=== PATIENT | male | born 1945 | race Caucasian/White ===

== ENCOUNTER 2021-02-25 10:50 | Outpatient (REF) | payer MEDICARE, OTHER, SELFPAY ==
[2021-02-25 11:58] LABS: TSH reflex Free T4 4.21 uIU/mL (0.32-4.0)
[2021-02-25 12:35] LABS: Free T4 (Free Thyroxine) 1.17 ng/dL (0.71-1.85)
== END 2021-02-25 10:51 | disposition home or self-care (01) ==
LOC: HO.LNP 10:50
PROVIDERS: Visit Provider Internal Medicine
DX: E03.9 Hypothyroidism, unspecified (principal)
CPT/HCPCS: 84439; 84443

== ENCOUNTER 2021-05-25 10:34 | Outpatient (REF) | payer MEDICARE, OTHER, SELFPAY ==
[2021-05-25 11:13] LABS: Estimated Average Glucose 120 mg/dL; Hemoglobin A1c % 5.8 %
[2021-05-25 11:22] LABS: Creatinine Urine 116.25 mg/dL; Microalbumin Urine < 5.0 mg/L
[2021-05-25 11:40] LABS: Alanine Aminotransferase 51 U/L (0-40); Albumin Level 4.2 g/dL (3.5-5.0); Alkaline Phosphatase 140 U/L (39-117); Aspartate Amino Transferase 51 U/L (5-37); Bilirubin Direct 0.3 mg/dL (0.0-0.5); Bilirubin Total 0.7 mg/dL (0.0-1.0); Cholesterol 115 mg/dL; HDL Cholesterol 35 mg/dL; LDL Cholesterol Calculated 69 mg/dl; Total Protein 6.6 g/dL (6.5-8.0); Triglycerides 59 mg/dL
[2021-05-25 12:12] LABS: Reflex LDLD? No
== END 2021-05-25 10:35 | disposition home or self-care (01) ==
LOC: HO.LNP 10:34
PROVIDERS: Visit Provider Internal Medicine
DX: R73.03 Prediabetes (principal); E78.00 Pure hypercholesterolemia, unspecified
CPT/HCPCS: 80061; 80076; 82043; 83036

== ENCOUNTER 2021-07-08 08:03 | Outpatient (REF) | payer MEDICARE, OTHER, SELFPAY ==
--- NOTE | ~2021-07-08 | XR_ITS ---
EXAMINATION: XR KNEE STANDING BILATERAL XR KNEE, RIGHT CLINICAL INFORMATION: Knee pain COMPARISON: None TECHNIQUE: AP standing view of both knees Right knee, 2 views (lateral and sunrise views) FINDINGS: The AP standing view shows well-preserved medial and lateral tibiofemoral joint space at the left knee. At the right knee, there is chondrocalcinosis, tricompartmental osteophyte formation, and moderate loss of the lateral tibiofemoral joint space. Also, subchondral sclerosis and subchondral cystic change at the degenerated lateral compartment of the right knee. There is approximately 10 degrees of genu valgus deformity of the right knee. The two additional views (lateral and sunrise views) of the right knee again show the chondrocalcinosis as well as a few intra-articular osteochondral bodies. Small knee joint effusion is present. Atherosclerotic calcification of the femoral, popliteal and lower leg vessels. 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 There is at least moderate osteoarthritis of the lateral tibiofemoral and patellofemoral compartments of the right knee. The lateral joint space narrowing is associated with exaggerated genu valgus configuration of the right knee.
--- NOTE | ~2021-07-08 | XR_ITS ---
EXAMINATION: XR KNEE STANDING BILATERAL XR KNEE, RIGHT CLINICAL INFORMATION: Knee pain COMPARISON: None TECHNIQUE: AP standing view of both knees Right knee, 2 views (lateral and sunrise views) FINDINGS: The AP standing view shows well-preserved medial and lateral tibiofemoral joint space at the left knee. At the right knee, there is chondrocalcinosis, tricompartmental osteophyte formation, and moderate loss of the lateral tibiofemoral joint space. Also, subchondral sclerosis and subchondral cystic change at the degenerated lateral compartment of the right knee. There is approximately 10 degrees of genu valgus deformity of the right knee. The two additional views (lateral and sunrise views) of the right knee again show the chondrocalcinosis as well as a few intra-articular osteochondral bodies. Small knee joint effusion is present. Atherosclerotic calcification of the femoral, popliteal and lower leg vessels. 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 There is at least moderate osteoarthritis of the lateral tibiofemoral and patellofemoral compartments of the right knee. The lateral joint space narrowing is associated with exaggerated genu valgus configuration of the right knee.
== END 2021-07-08 08:04 | disposition home or self-care (01) ==
LOC: HO.HOSX 08:03
PROVIDERS: Visit Provider Orthopaedic Surgery
DX: M17.11 Unilateral primary osteoarthritis, right knee (principal)
CPT/HCPCS: 73560; 73565; 99202

== ENCOUNTER 2021-07-16 10:28 | Outpatient (REF) | payer MEDICARE, OTHER, SELFPAY ==
[2021-07-16 11:02] LABS: Alanine Aminotransferase 29 U/L (0-40); Albumin Level 4.2 g/dL (3.5-5.0); Alkaline Phosphatase 124 U/L (39-117); Aspartate Amino Transferase 25 U/L (5-37); Bilirubin Direct 0.3 mg/dL (0.0-0.5); Bilirubin Total 0.7 mg/dL (0.0-1.0); Total Protein 6.6 g/dL (6.5-8.0)
== END 2021-07-16 10:29 | disposition home or self-care (01) ==
LOC: HO.LNP 10:28
PROVIDERS: Visit Provider Internal Medicine
DX: R79.89 Other specified abnormal findings of blood chemistry (principal)
CPT/HCPCS: 80076

== ENCOUNTER 2022-01-21 10:10 | Outpatient (REF) | payer MEDICARE, OTHER, SELFPAY ==
[2022-01-21 10:16] LABS: MANUAL DIFF FLAG NO
[2022-01-21 10:30] LABS: Basophils Absolute Auto 0.1 X10*3/uL (0.0-0.2); Basophils Percent Auto 1.4 % (0-2); Eosinophils Absolute Auto 0.3 X10*3/uL (0.0-0.4); Eosinophils Percent Auto 5.5 % (0-4); Hematocrit 40.6 % (42.0-52.0); Imm Gran Abs Auto 0.02 X10*3/uL (0.00-0.03); Imm Gran Pct Auto 0.3 % (0.0-0.4); Lymphocytes Absolute Auto 1.6 X10*3/uL (1.2-4.9); Lymphocytes Percent Auto 26.9 % (20-40); Mean Corpuscular Volume 93.8 fL (80.0-98.0); Mean Platelet Volume 10.4 fL (9.4-12.4); Monocytes Absolute Auto 0.7 X10*3/uL (0.1-1.2); Monocytes Percent Auto 12.1 % (2-11); Neutrophils Absolute Auto 3.2 x10*3/uL (2.0-8.3); Neutrophils Percent Auto 53.8 % (45-73); Platelet Count 254 X10*3/uL (160-400); Red Blood Count 4.33 X10*6/uL (4.60-5.80); Red Cell Distribution Width 13.3 % (11.0-16.0); White Blood Count 5.9 X10*3/uL (4.8-10.8)
[2022-01-21 10:34] LABS: Appearance Urine CLEAR; Color Urine YELLOW; Glucose Urine UA NEG (NEG); Leukocyte Esterase Urine NEG (NEG); Nitrite Urine NEG (NEG); Urine Blood NEG (NEG); Urine Ketones NEG (NEG); Urine Protein NEG (NEG-TRACE)
[2022-01-21 10:47] LABS: Alanine Aminotransferase 29 U/L (0-40); Alkaline Phosphatase 113 U/L (39-117); Anion Gap 11 (12-20); Aspartate Amino Transferase 23 U/L (5-37); Bilirubin Total 0.6 mg/dL (0.0-1.0); Blood Urea Nitrogen 19 mg/dL (9-16); Calcium 9.7 mg/dL (8.4-10.2); Carbon Dioxide 27 mmol/L (22-29); Chloride 105 mmol/L (96-108); Cholesterol 123 mg/dL; Estimated Glomerular Filt Rate 48; Glucose Fasting 98 mg/dL (60-99); HDL Cholesterol 37 mg/dL; LDL Cholesterol Calculated 72 mg/dl; Potassium 4.3 mmol/L (3.3-5.1); Sodium 139 mmol/L (135-145); Total Protein 6.7 g/dL (6.5-8.0); Triglycerides 70 mg/dL
[2022-01-21 10:48] LABS: Estimated Average Glucose 111 mg/dL; Hemoglobin A1c % 5.5 %
[2022-01-21 10:54] LABS: Creatinine Urine 115.64 mg/dL; Microalbum/Creatinine Ratio Ur 4.3 ug/mg cr
[2022-01-21 11:07] LABS: PSA,Total (Free>4and<10) 1.11 ng/mL (0.00-4.00); TSH reflex Free T4 10.11 uIU/mL (0.32-4.0)
== END 2022-01-21 10:11 | disposition home or self-care (01) ==
LOC: HO.LNP 10:10
PROVIDERS: Visit Provider Internal Medicine
DX: I10 Essential (primary) hypertension (principal); R73.03 Prediabetes; E78.00 Pure hypercholesterolemia, unspecified; E03.9 Hypothyroidism, unspecified; Z12.5 Encounter for screening for malignant neoplasm of prostate
CPT/HCPCS: 80053; 80061; 81003; 82043; 83036; 84153; 84439; 84443; 85025

== ENCOUNTER 2022-01-28 11:09 | Outpatient (REF) | payer MEDICARE, OTHER, SELFPAY ==
[2022-01-28 12:17] LABS: Thyroid Stimulating Hormone 4.02 uIU/mL (0.32-4.0)
== END 2022-01-28 11:10 | disposition home or self-care (01) ==
LOC: HO.LNP 11:09
PROVIDERS: Visit Provider Internal Medicine
DX: E03.9 Hypothyroidism, unspecified (principal)
CPT/HCPCS: 84443

== ENCOUNTER 2022-07-26 10:43 | Outpatient (REF) | payer MEDICARE, OTHER, SELFPAY ==
[2022-07-26 10:47] LABS: MANUAL DIFF FLAG NO
[2022-07-26 10:52] LABS: Appearance Urine Clear; Basophils Absolute Auto 0.1 X10*3/uL (0.0-0.2); Basophils Percent Auto 1.4 % (0-2); Color Urine Yellow; Eosinophils Absolute Auto 0.3 X10*3/uL (0.0-0.4); Eosinophils Percent Auto 3.8 % (0-4); Glucose Urine UA Negative (Negative); Hematocrit 44.6 % (42.0-52.0); Hemoglobin 14.8 g/dl (14.0-18.0); Imm Gran Abs Auto 0.02 X10*3/uL (0.00-0.03); Imm Gran Pct Auto 0.3 % (0.0-0.4); Leukocyte Esterase Urine Negative (Negative); Lymphocytes Absolute Auto 1.6 X10*3/uL (1.2-4.9); Lymphocytes Percent Auto 21.1 % (20-40); Mean Corpuscular HGB Conc 33.2 g/dl (31.0-36.0); Mean Corpuscular Hemoglobin 30.1 pg (27.0-33.0); Mean Corpuscular Volume 90.7 fL (80.0-98.0); Monocytes Absolute Auto 0.8 X10*3/uL (0.1-1.2); Monocytes Percent Auto 10.4 % (2-11); Neutrophils Absolute Auto 4.6 x10*3/uL (2.0-8.3); Nitrite Urine Negative (Negative); PH 5.5 (5.0-9.0); Platelet Count 215 X10*3/uL (160-400); Red Blood Count 4.92 X10*6/uL (4.60-5.80); Red Cell Distribution Width 13.1 % (11.0-16.0); Specific Gravity - Urine 1.015 (1.005-1.025); Urine Blood Negative (Negative); Urine Ketones Negative (Negative); Urine Protein Negative (Neg-Trace); White Blood Count 7.3 X10*3/uL (4.8-10.8)
[2022-07-26 10:57] LABS: Bacteria Urine None Seen (None Seen); Hyaline Casts Urine 0-2 /LPF (0-2); RBC Urine 0-2 /HPF (0-2); Squamous Epithelial Cell Urine 0-2 /HPF (0-2); WBC Urine 0-5 /HPF (0-5)
[2022-07-26 11:02] LABS: Alanine Aminotransferase 34 U/L (0-40); Albumin Level 4.4 g/dL (3.5-5.0); Alkaline Phosphatase 122 U/L (39-117); Anion Gap 14 (12-20); Aspartate Amino Transferase 30 U/L (5-37); Bilirubin Total 0.6 mg/dL (0.0-1.0); Blood Urea Nitrogen 18 mg/dL (9-16); Calcium 9.9 mg/dL (8.4-10.2); Carbon Dioxide 27 mmol/L (22-29); Chloride 104 mmol/L (96-108); Cholesterol 146 mg/dL; Estimated Glomerular Filt Rate 57; Glucose Fasting 101 mg/dL (60-99); HDL Cholesterol 47 mg/dL; LDL Cholesterol Calculated 88 mg/dl; Potassium 4.7 mmol/L (3.3-5.1); Sodium 140 mmol/L (135-145); Total Protein 6.9 g/dL (6.5-8.0); Triglycerides 55 mg/dL
[2022-07-26 11:14] LABS: Estimated Average Glucose 114 mg/dL; Hemoglobin A1c % 5.6 %
[2022-07-26 11:21] LABS: PSA,Total (Free>4and<10) 0.94 ng/mL (0.00-4.00); TSH reflex Free T4 7.75 uIU/mL (0.32-4.0)
[2022-07-26 11:48] LABS: Creatinine Urine 93.29 mg/dL; Microalbum/Creatinine Ratio Ur 9.6 ug/mg cr
[2022-07-26 11:55] LABS: Free T4 (Free Thyroxine) 1.25 ng/dL (0.71-1.85)
== END 2022-07-26 10:44 | disposition home or self-care (01) ==
LOC: HO.LNP 10:43
PROVIDERS: Visit Provider Internal Medicine
DX: Z12.5 Encounter for screening for malignant neoplasm of prostate (principal); I10 Essential (primary) hypertension; E03.9 Hypothyroidism, unspecified; E78.00 Pure hypercholesterolemia, unspecified
CPT/HCPCS: 80053; 80061; 81001; 82043; 83036; 84153; 84439; 84443; 85025

== ENCOUNTER 2023-01-27 11:03 | Outpatient (REF) | payer MEDICARE, OTHER, SELFPAY ==
[2023-01-27 11:07] LABS: MANUAL DIFF FLAG NO
[2023-01-27 11:36] LABS: Basophils Absolute Auto 0.1 X10*3/uL (0.0-0.2); Basophils Percent Auto 1.4 % (0-2); Eosinophils Absolute Auto 0.2 X10*3/uL (0.0-0.4); Eosinophils Percent Auto 3.8 % (0-4); Hematocrit 41.8 % (42.0-52.0); Hemoglobin 13.9 g/dl (14.0-18.0); Imm Gran Abs Auto 0.02 X10*3/uL (0.00-0.03); Imm Gran Pct Auto 0.3 % (0.0-0.4); Lymphocytes Absolute Auto 0.8 X10*3/uL (1.2-4.9); Lymphocytes Percent Auto 14.3 % (20-40); Mean Corpuscular HGB Conc 33.3 g/dl (31.0-36.0); Mean Corpuscular Hemoglobin 30.8 pg (27.0-33.0); Mean Corpuscular Volume 92.7 fL (80.0-98.0); Mean Platelet Volume 11.2 fL (9.4-12.4); Monocytes Absolute Auto 0.7 X10*3/uL (0.1-1.2); Monocytes Percent Auto 11.3 % (2-11); Neutrophils Percent Auto 68.9 % (45-73); Platelet Count 213 X10*3/uL (160-400); Red Blood Count 4.51 X10*6/uL (4.60-5.80); Red Cell Distribution Width 12.8 % (11.0-16.0); White Blood Count 5.8 X10*3/uL (4.8-10.8)
[2023-01-27 11:38] LABS: Appearance Urine Clear; Color Urine Yellow; Glucose Urine UA Negative (Negative); Leukocyte Esterase Urine Negative (Negative); Nitrite Urine Negative (Negative); PH 5.5 (5.0-9.0); Specific Gravity - Urine 1.015 (1.005-1.025); Urine Blood Negative (Negative); Urine Ketones Negative (Negative); Urine Protein Negative (Neg-Trace)
[2023-01-27 11:40] LABS: Bacteria Urine None Seen (None Seen); Hyaline Casts Urine 0-2 /LPF (0-2); RBC Urine 0-2 /HPF (0-2); Squamous Epithelial Cell Urine 0-2 /HPF (0-2); WBC Urine 0-5 /HPF (0-5)
[2023-01-27 11:52] LABS: Estimated Average Glucose 114 mg/dL; Hemoglobin A1c % 5.6 %
[2023-01-27 12:01] LABS: Alanine Aminotransferase 55 U/L (0-40); Alkaline Phosphatase 144 U/L (39-117); Anion Gap 13 (12-20); Aspartate Amino Transferase 49 U/L (5-37); Bilirubin Total 0.8 mg/dL (0.0-1.0); Blood Urea Nitrogen 24 mg/dL (9-16); Calcium 9.5 mg/dL (8.4-10.2); Carbon Dioxide 25 mmol/L (22-29); Chloride 107 mmol/L (96-108); Cholesterol 146 mg/dL; Estimated Glomerular Filt Rate 59; Glucose Fasting 105 mg/dL (60-99); HDL Cholesterol 44 mg/dL; LDL Cholesterol Calculated 89 mg/dl; Potassium 4.6 mmol/L (3.3-5.1); Sodium 140 mmol/L (135-145); Total Protein 6.4 g/dL (6.5-8.0); Triglycerides 66 mg/dL
[2023-01-27 12:15] LABS: PSA,Total (Free>4and<10) 1.29 ng/mL (0.00-4.00); TSH reflex Free T4 9.12 uIU/mL (0.32-4.0)
[2023-01-27 12:35] LABS: Creatinine Urine 93.64 mg/dL; Microalbum/Creatinine Ratio Ur 8.5 ug/mg cr
== END 2023-01-27 11:04 | disposition home or self-care (01) ==
LOC: HO.LNP 11:03
PROVIDERS: Visit Provider Internal Medicine
DX: Z12.5 Encounter for screening for malignant neoplasm of prostate (principal); I10 Essential (primary) hypertension; R73.03 Prediabetes; E78.00 Pure hypercholesterolemia, unspecified; E03.9 Hypothyroidism, unspecified
CPT/HCPCS: 80053; 80061; 81001; 82043; 83036; 84153; 84439; 84443; 85025

== ENCOUNTER 2023-02-10 11:05 | Outpatient (REF) | payer MEDICARE, OTHER, SELFPAY ==
[2023-02-10 11:58] LABS: Alanine Aminotransferase 40 U/L (0-40); Alkaline Phosphatase 143 U/L (39-117); Anion Gap 10 (12-20); Aspartate Amino Transferase 29 U/L (5-37); Bilirubin Total 0.4 mg/dL (0.0-1.0); Blood Urea Nitrogen 23 mg/dL (9-16); Calcium 8.7 mg/dL (8.4-10.2); Carbon Dioxide 24 mmol/L (22-29); Chloride 112 mmol/L (96-108); Estimated Glomerular Filt Rate 54; Glucose Fasting 106 mg/dL (60-99); Potassium 4.6 mmol/L (3.3-5.1); Sodium 141 mmol/L (135-145); Total Protein 6.1 g/dL (6.5-8.0)
== END 2023-02-10 11:06 | disposition home or self-care (01) ==
LOC: HO.LNP 11:05
PROVIDERS: Visit Provider Internal Medicine
DX: I10 Essential (primary) hypertension (principal)
CPT/HCPCS: 80053

== ENCOUNTER 2023-05-05 12:12 | Outpatient (REF) | payer MEDICARE, OTHER, SELFPAY ==
[2023-05-05 13:04] LABS: TSH reflex Free T4 1.95 uIU/mL (0.32-4.0)
== END 2023-05-05 12:13 | disposition home or self-care (01) ==
LOC: HO.LNP 12:12
PROVIDERS: Visit Provider Internal Medicine
DX: E03.9 Hypothyroidism, unspecified (principal)
CPT/HCPCS: 84443

== ENCOUNTER 2023-08-11 11:39 | Outpatient (REF) | payer MEDICARE, OTHER, SELFPAY ==
[2023-08-11 12:35] LABS: Alanine Aminotransferase 33 U/L (0-40); Alkaline Phosphatase 151 U/L (39-117); Aspartate Amino Transferase 30 U/L (5-37); Bilirubin Direct 0.3 mg/dL (0.0-0.5); Bilirubin Total 0.6 mg/dL (0.0-1.0); Cholesterol 120 mg/dL (<200); Glucose Fasting 99 mg/dL (60-99); HDL Cholesterol 39 mg/dL (>40); LDL Cholesterol Calculated 71 mg/dL (<100); Total Protein 6.9 g/dL (6.5-8.0); Triglycerides 53 mg/dL (<150)
== END 2023-08-11 11:40 | disposition home or self-care (01) ==
LOC: HO.LNP 11:39
PROVIDERS: Visit Provider Internal Medicine
DX: R73.03 Prediabetes (principal); E78.00 Pure hypercholesterolemia, unspecified
CPT/HCPCS: 80061; 80076; 82947

== ENCOUNTER 2024-01-30 10:57 | Outpatient (REF) | payer MEDICARE, OTHER, SELFPAY ==
[2024-01-30 11:04] LABS: MANUAL DIFF FLAG NO
[2024-01-30 11:17] LABS: Basophils Absolute Auto 0.1 X10*3/uL (0.0-0.2); Basophils Percent Auto 1.7 % (0-2); Eosinophils Absolute Auto 0.4 X10*3/uL (0.0-0.4); Eosinophils Percent Auto 5.9 % (0-4); Hematocrit 40.7 % (42.0-52.0); Hemoglobin 13.3 g/dl (14.0-18.0); Imm Gran Abs Auto 0.03 X10*3/uL (0.00-0.03); Imm Gran Pct Auto 0.5 % (0.0-0.4); Lymphocytes Absolute Auto 1.5 X10*3/uL (1.2-4.9); Lymphocytes Percent Auto 22.3 % (20-40); Mean Corpuscular HGB Conc 32.7 g/dl (31.0-36.0); Mean Corpuscular Hemoglobin 30.4 pg (27.0-33.0); Mean Corpuscular Volume 92.9 fL (80.0-98.0); Mean Platelet Volume 10.8 fL (9.4-12.4); Monocytes Absolute Auto 0.6 X10*3/uL (0.1-1.2); Monocytes Percent Auto 9.7 % (2-11); Neutrophils Absolute Auto 3.9 x10*3/uL (2.0-8.3); Neutrophils Percent Auto 59.9 % (45-73); Platelet Count 211 X10*3/uL (160-400); Red Blood Count 4.38 X10*6/uL (4.60-5.80); Red Cell Distribution Width 12.9 % (11.0-16.0); White Blood Count 6.6 X10*3/uL (4.8-10.8)
[2024-01-30 11:21] LABS: Appearance Urine Clear; Color Urine Yellow; Glucose Urine UA Negative (Negative); Leukocyte Esterase Urine Negative (Negative); Nitrite Urine Negative (Negative); PH 5.5 (5.0-9.0); Urine Blood Negative (Negative); Urine Ketones Negative (Negative); Urine Protein Negative (Neg-Trace)
[2024-01-30 11:28] LABS: Bacteria Urine None Seen (None Seen); Hyaline Casts Urine 0-2 /LPF (0-2); RBC Urine 0-2 /HPF (0-2); Squamous Epithelial Cell Urine 0-2 /HPF (0-2); WBC Urine 0-5 /HPF (0-5)
[2024-01-30 12:13] LABS: Creatinine Urine 121.75 mg/dL; Microalbum/Creatinine Ratio Ur 6.5 ug/mg cr (<30)
[2024-01-30 12:18] LABS: Estimated Average Glucose 117 mg/dL; Hemoglobin A1c % 5.7 % (<6.0)
[2024-01-30 12:23] LABS: Alanine Aminotransferase 44 U/L (0-40); Albumin Level 3.9 g/dL (3.5-5.0); Alkaline Phosphatase 158 U/L (39-117); Anion Gap 11 (12-20); Aspartate Amino Transferase 34 U/L (5-37); Bilirubin Total 0.6 mg/dL (0.0-1.0); Blood Urea Nitrogen 23 mg/dL (9-16); Calcium 9.3 mg/dL (8.4-10.2); Carbon Dioxide 25 mmol/L (22-29); Chloride 109 mmol/L (96-108); Cholesterol 122 mg/dL (<200); Estimated Glomerular Filt Rate 55; Glucose Fasting 100 mg/dL (60-99); HDL Cholesterol 39 mg/dL (>40); LDL Cholesterol Calculated 71 mg/dL (<100); Potassium 4.2 mmol/L (3.3-5.1); Sodium 141 mmol/L (135-145); Total Protein 6.8 g/dL (6.5-8.0); Triglycerides 62 mg/dL (<150)
[2024-01-30 12:42] LABS: TSH reflex Free T4 4.38 uIU/mL (0.32-4.0)
[2024-01-30 13:36] LABS: Free T4 (Free Thyroxine) 1.11 ng/dL (0.71-1.85)
== END 2024-01-30 10:58 | disposition home or self-care (01) ==
LOC: HO.LNP 10:57
PROVIDERS: Visit Provider Internal Medicine
DX: I10 Essential (primary) hypertension (principal); R73.03 Prediabetes; E03.9 Hypothyroidism, unspecified; E78.00 Pure hypercholesterolemia, unspecified
CPT/HCPCS: 80053; 80061; 81001; 82043; 82570; 83036; 84439; 84443; 85025

== ENCOUNTER 2024-02-09 10:49 | Outpatient (REF) | payer MEDICARE, OTHER, SELFPAY | END 2024-02-09 10:50 | disposition home or self-care (01) | LOC: HO.LNP 10:49 | PROVIDERS: Visit Provider Internal Medicine | DX: Z12.5 Encounter for screening for malignant neoplasm of prostate (principal) | CPT/HCPCS: 84153 ==

== ENCOUNTER 2024-08-12 11:02 | Outpatient (REF) | payer MEDICARE, OTHER, SELFPAY ==
[2024-08-12 12:07] LABS: Estimated Average Glucose 117 mg/dL; Hemoglobin A1C 136.4694 umol/L; Hemoglobin A1c % 5.7 % (<6.0); Total Hemoglobin (HGBA1C) 3484.5502 umol/L
[2024-08-12 12:49] LABS: Alanine Aminotransferase 48 U/L (0-40); Albumin Level 4.1 g/dL (3.5-5.0); Alkaline Phosphatase 190 U/L (39-117); Aspartate Amino Transferase 47 U/L (5-37); Bilirubin Direct 0.2 mg/dL (0.0-0.5); Bilirubin Total 0.7 mg/dL (0.0-1.0); Cholesterol 122 mg/dL (<200); Glucose Fasting 103 mg/dL (60-99); HDL Cholesterol 42 mg/dL (>40); LDL Cholesterol Calculated 67 mg/dL (<100); TSH reflex Free T4 5.75 uIU/mL (0.32-4.0); Triglycerides 67 mg/dL (<150)
[2024-08-12 13:22] LABS: Free T4 (Free Thyroxine) 1.13 ng/dL (0.71-1.85)
[2024-08-12 13:26] LABS: Reflex LDLD? No
== END 2024-08-12 11:03 | disposition home or self-care (01) ==
LOC: HO.LNP 11:02
PROVIDERS: Visit Provider Internal Medicine
DX: R73.09 Other abnormal glucose (principal); E78.00 Pure hypercholesterolemia, unspecified
CPT/HCPCS: 80061; 80076; 82947; 83036; 84439; 84443

== ENCOUNTER 2024-11-14 11:12 | Outpatient (REF) | payer MEDICARE, OTHER, SELFPAY ==
[2024-11-14 12:03] LABS: Alanine Aminotransferase 58 U/L (0-40); Albumin Level 4.1 g/dL (3.5-5.0); Alkaline Phosphatase 194 U/L (39-117); Aspartate Amino Transferase 53 U/L (5-37); Bilirubin Direct 0.4 mg/dL (0.0-0.5); Bilirubin Total 0.9 mg/dL (0.0-1.0); TSH reflex Free T4 1.32 uIU/mL (0.32-4.0); Total Protein 7.3 g/dL (6.5-8.0)
== END 2024-11-14 11:13 | disposition home or self-care (01) ==
LOC: HO.LNP 11:12
PROVIDERS: Visit Provider Internal Medicine
DX: R73.09 Other abnormal glucose (principal)
CPT/HCPCS: 80076; 84443

== ENCOUNTER → 2024-11-22 10:15 | Outpatient (BNV) | payer MEDICARE, OTHER, SELFPAY | PROVIDERS: PCP Internal Medicine; Visit Provider Specialist | DX: R74.01 Elevation of levels of liver transaminase levels (principal) | CPT/HCPCS: 76700 ==

== ENCOUNTER 2025-01-13 13:35 | Outpatient (REF) | payer MEDICARE, OTHER, SELFPAY ==
--- NOTE | ~2025-01-13 | XR_ITS ---
CLINICAL HISTORY: RIB PAIN ON LEFT SIDE Single view of the chest with left rib films. COMPARISON: None FINDINGS: Normal heart and mediastinal contours. No consolidation. No pleural effusion or pneumothorax. Moderate mid to lower thoracic spondylosis. No fracture identified. IMPRESSION: 1. No acute cardiopulmonary abnormality. 2. No rib fracture identified. This document has been electronically signed by: Cem Shah MD on 01/14/2025 15:13:43
== END 2025-01-13 13:36 | disposition home or self-care (01) ==
LOC: HO.XRAY 13:35
PROVIDERS: PCP Internal Medicine; Visit Provider Internal Medicine
DX: R07.81 Pleurodynia (principal)
CPT/HCPCS: 71101

== ENCOUNTER → 2025-01-13 13:50 | Outpatient (BNV) | payer MEDICARE, OTHER, SELFPAY | PROVIDERS: PCP Internal Medicine; Visit Provider Radiology Diagnostic Radiology | DX: R07.82 Intercostal pain (principal) | CPT/HCPCS: 71101 ==

== ENCOUNTER 2025-02-04 07:15 | Outpatient (REF) | payer MEDICARE, OTHER, SELFPAY ==
[2025-02-04 10:40] LABS: MANUAL DIFF FLAG NO
[2025-02-04 11:31] LABS: Basophils Absolute Auto 0.1 X10*3/uL (0.0-0.2); Basophils Percent Auto 1.6 % (0-2); Eosinophils Absolute Auto 0.3 X10*3/uL (0.0-0.4); Eosinophils Percent Auto 5.5 % (0-4); Hematocrit 40.9 % (42.0-52.0); Hemoglobin 13.4 g/dl (14.0-18.0); Imm Gran Abs Auto 0.02 X10*3/uL (0.00-0.03); Imm Gran Pct Auto 0.4 % (0.0-0.4); Lymphocytes Absolute Auto 1.5 X10*3/uL (1.2-4.9); Lymphocytes Percent Auto 26.5 % (20-40); Mean Corpuscular HGB Conc 32.8 g/dl (31.0-36.0); Mean Corpuscular Hemoglobin 30.4 pg (27.0-33.0); Mean Corpuscular Volume 92.7 fL (80.0-98.0); Mean Platelet Volume 10.8 fL (9.4-12.4); Monocytes Absolute Auto 0.6 X10*3/uL (0.1-1.2); Monocytes Percent Auto 11.7 % (2-11); Neutrophils Percent Auto 54.3 % (45-73); Platelet Count 234 X10*3/uL (160-400); Red Blood Count 4.41 X10*6/uL (4.60-5.80); Red Cell Distribution Width 12.7 % (11.0-16.0); White Blood Count 5.5 X10*3/uL (4.8-10.8)
[2025-02-04 11:34] LABS: Appearance Urine Clear; Color Urine Yellow; Glucose Urine UA Negative (Negative); Leukocyte Esterase Urine Negative (Negative); Nitrite Urine Negative (Negative); Specific Gravity - Urine 1.015 (1.005-1.025); Urine Blood Negative (Negative); Urine Ketones Negative (Negative); Urine Protein Negative (Neg-Trace)
[2025-02-04 11:36] LABS: Estimated Average Glucose 117 mg/dL; Hemoglobin A1C 139.7541 umol/L; Hemoglobin A1c % 5.7 % (<6.0); Total Hemoglobin (HGBA1C) 3555.4329 umol/L
[2025-02-04 11:42] LABS: Bacteria Urine None Seen (None Seen); Hyaline Casts Urine 0-2 /LPF (0-2); RBC Urine 0-2 /HPF (0-2); Squamous Epithelial Cell Urine 0-2 /HPF (0-2); WBC Urine 0-5 /HPF (0-5)
[2025-02-04 11:56] LABS: Alanine Aminotransferase 55 U/L (0-40); Albumin Level 4.1 g/dL (3.5-5.0); Alkaline Phosphatase 250 U/L (39-117); Anion Gap 10 (12-20); Aspartate Amino Transferase 48 U/L (5-37); Bilirubin Total 0.5 mg/dL (0.0-1.0); Blood Urea Nitrogen 25 mg/dL (9-16); Calcium 9.6 mg/dL (8.4-10.2); Carbon Dioxide 26 mmol/L (22-29); Chloride 108 mmol/L (96-108); Cholesterol 134 mg/dL (<200); Estimated Glomerular Filt Rate 58; Glucose Fasting 98 mg/dL (60-99); HDL Cholesterol 44 mg/dL (>40); LDL Cholesterol Calculated 77 mg/dL (<100); Potassium 4.5 mmol/L (3.3-5.1); Sodium 139 mmol/L (135-145); Total Protein 6.9 g/dL (6.5-8.0); Triglycerides 69 mg/dL (<150)
[2025-02-04 12:02] LABS: Creatinine Urine 73.98 mg/dL; Microalbum/Creatinine Ratio Ur 13.5 ug/mg cr (<30)
--- OUTSIDE RECORDS SUMMARY | 2025-02-04 12:46 | XMS_ITS ---
Author Organization Manny Zarco MD Address [address] [place], [place] [id number] Care Team Providers Care Explosive Man Name Role Phone Manny Zarco Primary Care Provider Results Component Value Reference Range Notes Complete Blood Count Auto Di ff (Not yet reviewed by provider) Interpretation: Performing Lab:[facility], [address] [place] [id number] Notes/Report: White Blood Count 5.5 4.8-10.8 X10*3/uL Red Blood Count 4.41 4.60-5.80 X10*6/uL Hemoglobin 13.4 14.0-18.0 g/dl Hematocrit 40.9 42.0-52.0 % Mean Corpuscular Volume 92.7 80.0-98.0 fL Mean Corpuscular Hemoglobin 30.4 27.0-33.0 pg Mean Corpuscular HGB Conc 32.8 31.0-36.0 g/dl Red Cell Distribution Width 12.7 11.0-16.0 % Platelet Count 234 160-400 X10*3/uL Mean Platelet Volume 10.8 9.4-12.4 fL Neutrophils Percent Auto 54.3 45-73 % Imm Gran Pct Auto 0.4 0.0-0.4 % Lymphocytes Percent Auto 26.5 20-40 % Monocytes Percent Auto 11.7 2-11 % Eosinophils Percent Auto 5.5 0-4 % Basophils Percent Auto 1.6 0-2 % NRBC Pct Auto 0.0 0.0-0.2 /100WBC Neutrophils Absolute Auto 3.0 2.0-8.3 x10*3/u L Imm Gran Abs Auto 0.02 0.00-0.03 X10*3/uL Lymphocytes Absolute Auto 1.5 1.2-4.9 X10*3/u L Monocytes Absolute Auto 0.6 0.1-1.2 X10*3/uL Eosinophils Absolute Auto 0.3 0.0-0.4 X10*3/u L Basophils Absolute Auto 0.1 0.0-0.2 X10*3/uL NRBC Abs Auto 0.000 0.0-0.012 X10*3/uL Comprehensive Mclaughlin. Panel Fa (Not yet reviewed by provider) Interpretation: Performing Lab:[address] [id number] Notes/Report: Sodium 139 135-145 mmol/L Potassium 4.5 3.3-5.1 mmol/L Chloride 108 96-108 mmol/L Carbon Dioxide 26 22-29 mmol/L Anion Gap 10 12-20 Blood Urea Nitrogen 25 9-16 mg/dL Creatinine 1.20 0.5-1.4 mg/dL Estimated Glomerular Filt Rate 58 Chronic Kidney Disease: Estimated GFR < 60 mL/min/1.73m2 Severe Kidney Disease: Estimated GFR < 15 mL/min/1.73m2 Glucose Fasting 98 60-99 mg/dL Calcium 9.6 8.4-10.2 mg/dL Bilirubin Total 0.5 0.0-1.0 mg/dL Aspartate Amino Transferase 48 5-37 U/L Alanine Aminotransferase 55 0-40 U/L Total Protein 6.9 6.5-8.0 g/dL Albumin Level 4.1 3.5-5.0 g/dL Alkaline Phosphatase 250 39-117 U/L Lipid Panel (Not yet reviewe d by provider) Interpretation: Performing Lab:[address] [phone] Notes/Report: Triglycerides 69 <150 mg/dL Desirable Triglyceride: less than 150 mg/dL Borderline High Triglyceride 150-199 mg/dL High Triglyceride: 200-499 mg/dL Very High Triglyceride: greater than or equal to 5OO mg/dL Cholesterol 134 <200 mg/dL Desirable Cholesterol: less than 200 mg/dL Borderline High Cholesterol: 200-239 mg/dL High Cholesterol: greater than 239 mg/dL LDL Cholesterol Calculated 77 <100 mg/dL Desirable LDL: less than 100 mg/dL Near Optimal/Above Optimal LDL: 110-129 mg/dL Borderline High LDL: 130-159 mg/dL High LDL: 160-189 mg/dL Very High LDL: greater than or equal to 190 mg/dL HDL Cholesterol 44 >40 mg/dL Desirable HDL: greater than 40 mg/dL Note: This HDL assay may give artificially low results in patients with liver disease. PSA,Total (Free>4and<10) (No t yet reviewed by provider) Interpretation: Performing Lab:[address] [phone] Notes/Report: PSA,Total (Free>4and<10) 1.60 0.00-4.00 ng/mL A Free PSA was not performed: The percentage of Free PSA can be used to enhance the differentiation of prostate cancer from benign prostatic disease in subjects whose PSA levels are between 4.0 and 10.0 ng/mL. For subjects whose PSA levels are below 4.0 or above 10.0 ng/mL, the risk of prostate cancer is determined on the basis of the PSA alone. Therefore the % Free PSA is recommended only for those subjects whose PSA levels are between 4.0 and 10.0 ng/mL. PSA methodology: Chairez Alinity i Chemiluminescent Microparticle Immunoassay (CMIA) TSH reflex Free T4 (Not yet reviewed by provider) Interpretation: Performing Lab:[address] [phone] Notes/Report: TSH reflex Free T4 1.30 0.32-4.0 uIU/mL Microalbumin, Random (Not ye t reviewed by provider) Interpretation: Performing Lab:[address] [phone] Notes/Report: Creatinine Urine 73.98 Microalbumin Urine 10.0 Microalbum/Creatinine Ratio Ur 13.5 <30 ug/mg cr Albumin/Creatinine Ratio Reference Ranges: Normal: < 30 ug/mg creatinine Microalbuminuria: 30 - 300 ug/mg creatinine Clinical Albuminuria: > 300 ug/mg creatinine Hemoglobin A1c (Not yet revi ewed by provider) Interpretation: Performing Lab:[facility], [address] [place] [phone] Notes/Report: Hemoglobin A1c % 5.7 <6.0 % Hemoglobin A1C Reference Range Adults: 4.8 - 6.0 % Non diabetic: < 6.0 % Goal: < 7.0 % Additional Action Suggested: > 8.0 % Note: Hemoglobin A1c results are invalid for patients with abnormal amounts of HbF. Blood transfusions may impact the HbA1c concentration in the patient sample. Estimated Average Glucose 117 eAG = Estimated average glucose which is %A1C expressed as average glucose, using the formula of the [id number] Average Glucose study (ADAG), Diabetes Care, Vol.31,#8, 2007 UA ClnCatch+Micro w/rflx Cul t (Not yet reviewed by provider) Interpretation: Performing Lab:[facility], [address] [place] [phone] Notes/Report: Urine, Clean Catch Color Urine Yellow Appearance Urine Clear PH 6.0 5.0-9.0 Glucose Urine UA Negative Negative mg/dL Urine Blood Negative Negative Specific [place] - Urine 1.015 1.005-1.025 Urine Protein Negative Neg-Trace mg/dL Urine Ketones Negative Negative mg/dL Nitrite Urine Negative Negative Leukocyte Esterase Urine Negative Negative RBC Urine 0-2 0-2 /HPF WBC Urine 0-5 0-5 /HPF Squamous Epithelial Cell Urine 0-2 0-2 /HPF Bacteria Urine None Seen None Seen Hyaline Casts Urine 0-2 0-2 /LPF REASON FOR VISIT FASTING LABS Encounters Encounter Location Date Provider Diagnosis Manny Zarco MD [address] [place], [place] [id number] 02/04/2025 Manny Zarco Essential hypertensi on I10 ; Prediabetes R73.09 ; Pure hypercholesterolemia E78.00 and Acquired hypothyroidism E03.9 Assessments Encounter Date Diagnosis (ICD Code) Assessment Notes Treatment Notes Treatment Clinical Notes Section Notes 02/04/2025 Essential hypertensi on (ICD-10 - I10) 02/04/2025 Prediabetes (ICD-10 - R73.09) 02/04/2025 Pure hypercholesterolemia (ICD-10 - E78.00) 02/04/2025 Acquired hypothyroid ism (ICD-10 - E03.9) Plan Of Treatment Pending Test Test Name Order Date Complete Blood Count Auto Diff Comprehensive Mclaughlin. Panel Fast Lipid Panel 02/04/2025 PSA,Total (Free>4and<10) 02/04/2025 TSH reflex Free T4 02/04/2025 Microalbumin, Random 02/04/2025 Hemoglobin A1c 02/04/2025 UA ClnCatch+Micro w/rflx Cult 02/04/2025 Next Appt Details Provider Name:Manny Dow ier, 02/11/2025 01:00:00 PM, [address] [place] [address], [address], [place], [place], [id number], Provider Name:Manny Dow ier, 11/24/2025 10:00:00 AM, [address] [place] [address], [address], [place], [place], [id number], Progress Notes * Nasir GARCIA PDOB: [birth year] (79 yo M)Acc No.[id number]:02/04/2025 Progress Note Patient:Nasir STOVER Provider:?Manny Zarco MD :1945???Age:79 Y???Sex:Male Diego e:02/04/2025 Address:[address] [place], [place] [address] [place], [place] Subjective: * Chief Complaints: * ???1. FASTING LABS. * Medical History:? Objective: * Vitals:? Assessment: * Assessment: 1.?Essential hypertension - I10 (Primary)???2.?Prediabetes - R73.09???3.?Pure hypercholesterolemia - E78.00???4.?Acquired hypothyroidism - E03.9??? Plan: * Treatment: 2.?Prediabetes?LAB: Complete Blood Count Auto Diff (Collection Date & Time - 02/04/2025 07:15 AM) ?LAB: Comprehensive [facility]. Panel Fast (Collection Date & Time - 02/04/2025 07:15 AM) ?LAB: Lipid Panel (Collection Date & Time 02/04/2025 07:15 AM) ?LAB: PSA,Total (Free>4and<10) (Collection Date & Time - 02/04/2025 07:15 AM) ?LAB: TSH reflex Free T4 (Collection Date & Time - 02/04/2025 07:15 AM) ?LAB: Microalbumin, Random (Collection Date & Time - 02/04/2025 07:15 AM) ?LAB: Hemoglobin A1c (Collection Date & Time 02/04/2025 07:15 AM) ?LAB: UA ClnCatch+Micro w/rflx Cult (Collection Date & Time 02/04/2025 07:15 AM) 3.?Pure hypercholesterolemia ?LAB: Complete Blood Count Auto Diff (Collection Date & Time 02/04/2025 07:15 AM) ?LAB: Comprehensive [facility]claughlin. Panel Fast (Collection Date & Time 02/04/2025 07:15 AM) ?LAB: Lipid Panel (Collection Date & Time 02/04/2025 07:15 AM) ?LAB: PSA,Total (Free>4and<10) (Collection Date & Time 02/04/2025 07:15 AM) ?LAB: TSH reflex Free T4 (Collection Date & Time 02/04/2025 07:15 AM) ?LAB: Microalbumin, Random (Collection Date & Time 02/04/2025 07:15 AM) ?LAB: Hemoglobin A1c (Collection Date & Time 02/04/2025 07:15 AM) ?LAB: UA ClnCatch+Micro w/rflx Cult (Collection Date & Time 02/04/2025 07:15 AM) 4.?Acquired hypothyroidism?LAB: Complete Blood Count Auto Diff (Collection Date & Time 02/04/2025 07:15 AM) ?LAB: Comprehensive [facility]claughlin. Panel Fast (Collection Date & Time - 02/04/2025 07:15 AM) ?LAB: Lipid Panel (Collection Date & Time - 02/04/2025 07:15 AM) ?LAB: PSA,Total (Free>4and<10) (Collection Date & Time - 02/04/2025 07:15 AM) ?LAB: TSH reflex Free T4 (Collection Date & Time - 02/04/2025 07:15 AM) ?LAB: Microalbumin, Random (Collection Date & Time - 02/04/2025 07:15 AM) ?LAB: Hemoglobin A1c (Collection Date & Time - 02/04/2025 07:15 AM) ?LAB: UA ClnCatch+Micro w/rflx Cult (Collection Date & Time - 02/04/2025 07:15 AM) * Procedure Codes:?16287 VENIP UNCT, ROUTINE* * * The named appointment provid er may or may not be the originator of this progress note, and it is not deemed complete until electronically signed by the appointment provider. Sign off status: Pending * Provider:?Manny Zarco MD Date:?0 02/04/2025 Generated for Jesus Alberto alarcon/Zulma/Aleitting on:?02/04/2025 12:46 PM EDT
--- OUTSIDE RECORDS SUMMARY | 2025-02-04 12:46 | XMS_ITS | Patient Health Record ---
Author Organization Manny Zarco MD Address [address] [place], [place] [id number] Care Team Providers Care Consumer Loan Processor Name Role Phone Manny Zarco Primary Care Provider [phone] Allergies No Known Allergies Results Component Value Reference Range Notes Liver Panel Reviewed date:11/14/2024 12:12:08 PM Interpretation: Performing Lab:[facility], [address] [place] [phone] Notes/Report: Bilirubin Total 0.9 0.0-1.0 mg/dL Bilirubin Direct 0.4 0.0-0.5 mg/dL Aspartate Amino Transferase 53 5-37 U/L Alanine Aminotransferase 58 0-40 U/L Total Protein 7.3 6.5-8.0 g/dL Albumin Level 4.1 3.5-5.0 g/dL Alkaline Phosphatase 194 39-117 U/L TSH reflex Free T4 Reviewed date:11/21/2024 10:16:47 AM Interpretation:CBACK 11/21 TSH Performing Lab:[facility], [address] [place] [phone] Notes/Report: TSH reflex Free T4 1.32 0.32-4.0 uIU/mL Complete Blood Count Auto Di ff (Not yet reviewed by provider) Interpretation: Performing Lab:[facility], [address] [place] [phone] Notes/Report: White Blood Count 5.5 4.8-10.8 X10*3/uL [...] 0.0-0.2 /100WBC Neutrophils Absolute Auto 3.0 2.0-8.3 x10*3/uL Imm Gran Abs Auto 0.02 0.00-0.03 X10*3/uL Lymphocytes Absolute Auto 1.5 1.2-4.9 X10*3/uL Monocytes Absolute Auto 0.6 0.1-1.2 X10*3/uL Eosinophils Absolute Auto 0.3 0.0-0.4 X10*3/uL Basophils Absolute Auto 0.1 0.0-0.2 X10*3/uL NRBC Abs Auto 0.000 0.0-0.012 X10*3/uL Comprehensive [place]. Panel Fa st (Not yet reviewed by provider) Interpretation: Performing Lab:[facility], [address] [place] [phone] Notes/Report: Sodium 139 135-145 mmol/L Potassium 4.5 [...] yet reviewe d by provider) Interpretation: Performing Lab:[address] [phone] Notes/Report: Triglycerides 69 <150 mg/dL Desirable Triglyceride: [...] t yet reviewed by provider) Interpretation: Performing Lab:[address] [phone] Notes/Report: PSA,Total (Free>4and<10) 1.60 0.00-4.00 ng/mL A [...] (Not yet reviewed by provider) Interpretation: Performing Lab:[address] [phone] Notes/Report: TSH reflex Free T4 1.30 0.32-4.0 uIU/mL Microalbumin, Random (Not ye t reviewed by provider) Interpretation: Performing Lab:[address] [phone] Notes/Report: Creatinine Urine 73.98 Microalbumin Urine 10.0 Microalbum/Creatinine Ratio Ur 13.5 <30 ug/mg cr Albumin/Creatinine Ratio Reference Ranges: Normal: < 30 ug/mg creatinine Microalbuminuria: 30 - 300 ug/mg creatinine Clinical Albuminuria: > 300 ug/mg creatinine Hemoglobin A1c (Not yet revi ewed by provider) Interpretation: Performing Lab:[address] [phone] Notes/Report: Hemoglobin A1c % 5.7 <6.0 % [...] average glucose, using the formula of the B3W-Ntgkcja Average Glucose study (ADAG), Diabetes Care, Vol.31,#8, 2007 UA ClnCatch+Micro w/rflx Cul t (Not yet reviewed by provider) Interpretation: Performing Lab:[address] [phone] Notes/Report: Urine, Clean Catch Color Urine Yellow Appearance Urine Clear PH 6.0 5.0-9.0 Glucose Urine UA Negative Negative mg/dL Urine Blood Negative Negative Specific [place] - Urine 1.015 1.005-1.025 Urine Protein Negative Neg-Trace mg/dL Urine Ketones Negative Negative mg/dL Nitrite Urine Negative Negative Leukocyte Esterase Urine Negative Negative RBC Urine 0-2 0-2 /HPF WBC Urine 0-5 0-5 /HPF Squamous Epithelial Cell Urine 0-2 0-2 /HPF Bacteria Urine None Seen None Seen Hyaline Casts Urine 0-2 0-2 /LPF Occult Blood, Stool, Guaiac Reviewed date:02/09/2024 09:32:54 AM Interpretation:Negative Performing Lab: Notes/Report: Negative Occult Blood, Stool, Guaiac Neg PSA,Total (Free>4and<10) Reviewed date:02/09/2024 12:41:29 PM Interpretation: Performing Lab:[address] [phone] Notes/Report: PSA,Total (Free>4and<10) 1.80 0.00-4.00 ng/mL A Free PSA was not [...] Chairez Alinity i Chemiluminescent Microparticle Immunoassay (CMIA) Liver Panel Reviewed date:08/12/2024 04:45:32 PM Interpretation: Performing Lab:[facility], [address] [place] [phone] Notes/Report: Bilirubin Total 0.7 0.0-1.0 mg/dL Bilirubin Direct 0.2 0.0-0.5 mg/dL Slight Hem olysis Aspartate Amino Transferase 47 5-37 U/L Slight Hemolysis Alanine Aminotransferase 48 0-40 U/L Total Protein 7.0 6.5-8.0 g/dL Albumin Level 4.1 3.5-5.0 g/dL Alkaline Phosphatase 190 39-117 U/L Glucose Fasting Reviewed date:08/12/2024 01:59:06 PM Interpretation: Performing Lab:[facility], [address] [place] [phone] Notes/Report: Glucose Fasting 103 60-99 mg/dL A fasting glucose from 100-125 mg/dl is considered impaired (pre-diabetes). Lipid Panel with Reflex Reviewed date:08/12/2024 04:43:57 PM Interpretation: Performing Lab:[facility], [address] [place] [phone] Notes/Report: Triglycerides 67 <150 mg/dL Desirable Triglyceride: less than 150 mg/dL Borderline High Triglyceride 150-199 mg/dL High Triglyceride: 200-499 mg/dL Very High Triglyceride: greater than or equal to 5OO mg/dL Cholesterol 122 <200 mg/dL Desirable Cholesterol: less than 200 mg/dL Borderline High Cholesterol: 200-239 mg/dL High Cholesterol: greater than 239 mg/dL LDL Cholesterol Calculated 67 <100 mg/dL Desirable LDL: less than 100 mg/dL Near Optimal/Above Optimal LDL: 110-129 mg/dL Borderline High LDL: 130-159 mg/dL High LDL: 160-189 mg/dL Very High LDL: greater than or equal to 190 mg/dL HDL Cholesterol 42 >40 mg/dL Desirable HDL: greater than 40 mg/dL Note: This HDL assay may give artificially low results in patients with liver disease. TSH reflex Free T4 Reviewed date:08/12/2024 01:59:21 PM Interpretation: Performing Lab:[facility], [address] [place] [phone] Notes/Report: TSH reflex Free T4 5.75 0.32-4.0 uIU/mL Hemoglobin A1c Reviewed date:08/12/2024 01:00:30 PM Interpretation: Performing Lab:[facility], [address] [place] [phone] Notes/Report: Hemoglobin A1c % 5.7 <6.0 % [...] average glucose, using the formula of the A6F-Rtalttf Average Glucose study (ADAG), Diabetes Care, Vol.31,#8, 2007 Murtaza Green Gel Reviewed date:02/09/2024 12:41:08 PM Interpretation: Performing Lab:[facility], [address] [place] [phone] Notes/Report: Murtaza [place] Gel See Note Specimen held untested for 24 hours; Call to request Chemistry testing. Free T4 (Free Thyroxine) Reviewed date:08/12/2024 04:45:50 PM Interpretation: Performing Lab:[facility], [address] [place] [phone] Notes/Report: Free T4 (Free Thyroxine) 1.13 0.71-1.85 ng/dL Murtaza Walter Reviewed date:08/12/2024 12:56:56 PM Interpretation: Performing Lab:[facility], [address] [place] [phone] Notes/Report: Murtaza Walter See Note Specimen held untested for 24 hours; Call to request Chemistry testing. Murtaza Walter Reviewed date:11/14/2024 12:27:37 PM Interpretation: Performing Lab:[facility], [address] [place] [phone] Notes/Report: Murtaza Walter See Note Specimen held untested for 24 hours; Call to request Chemistry testing. US abdomen complete Reviewed date:11/29/2024 12:37:43 PM Interpretation: Performing Lab: Notes/Report: [address] [address] Ultrasound Report Signed Patient: Nasir Garcia MR#: [id number] [birth year] : 1945 Acct:[id number] Age/Sex: 79 / M ADM Date: 11/22/24 Loc: HO.US Attending Dr: Manny Zarco MD Ordering Physician: Manny Zarco MD Date of Service: 11/22/24 Procedure(s): US abdomen complete Accession Number(s): [id number] cc: Manny Zarco MD CLINICAL HISTORY: elevated LFTs US abdomen complete Comparison: None Findings: The visualized pancreas is normal. The aorta and inferior vena cava are normal caliber. The liver is normal in size and echotexture. There is intrahepatic bile duct dilatation. Correlation clinical laboratory findings recommended to determine need, if any, for further evaluation with a findings possibly physiologic. The common duct is 10.0 mm in diameter. There are no abnormal findings in the gallbladder fossa There is no sonographic Francisco sign. The main portal vein is antegrade. The right kidney is 12.3 cm in length. The left kidney is 11.1 cm in length. The spleen is normal. No ascites. IMPRESSION: 1. Intra and extrahepatic biliary tract dilatation possibly physiologic post cholecystectomy. Comparison with any prior studies, if available, would be of value. Clinical and laboratory correlation recommended to determine need, if any, for further evaluation. This document has been electronically signed by: Salbador Romero MD on 11/29/2024 07:38:23 Dictated By: Salbador Romero MD Signed By: <Electronically signed by Salbador Romero MD in OV> 11/29/24 0739 DD/ 7 TD/TT: 11/29/24737 Commercial Drafter: [place] [address] Ultrasound Report Signed Patient: Harry Garcia MR#: [id number] [birth year] : 1945 Acct:[id number] Age/Sex: 79 / M ADM Date: 11/22/24 Loc: HO.US Attending Dr: Manny Zarco MD Ordering Physician: Manny Zarco MD Date of Service: 11/22/24 Procedure(s): US abdomen complete Accession Number(s): [id number] cc: Manny Zarco MD CLINICAL HISTORY: elevated LFTs US abdomen complete Comparison: None Findings: The visualized pancr eas is normal. The aorta and inferi or vena cava are normal caliber. The liver is normal in size and echotexture. There is intrahepati c bile duct dilatation. Correlation clinical laboratory findings recommended to determine need, if any, for further evaluation with a findings possibly physiologic. The common duct is 1 0.0 mm in diameter. There are no abnorma l findings in the gallbladder fossa There is no sonographic Francisco sign. The main portal vein is antegrade. The right kidney is 12.3 cm in length. The left kidney is 1 1.1 cm in length. The spleen is normal. No ascites. IMPRESSION: 1. Intra and extrahepatic biliary tract dilatation possibly physiologic post cholecystectomy . Comparison with any prior studies, if available, would be of value. Clinical and laboratory correlation recommended to determine need, if a ny, for further evaluation. This document has be en electronically signed by: Salbador Romero MD on 11/29/2024 07:38:23 Dictated By: Salbador Romero MD Signed By: <Electronically signed by Salbador Romero MD in OV> 11/29/2439 DD/ 7 TD/TT: 11/29/24737 Commercial Drafter: XR ribs LT min 3V w CXR1V Reviewed date:01/16/2025 11:29:52 AM Interpretation: Performing Lab: Notes/Report: [address] [address] XRay Report Signed Patient: Nasir Garcia MR#: [id number] [birth year] : 1945 Acct:[id number] Age/Sex: 79 / M ADM Date: 01/13/25 Loc: HO.XRAY Attending Dr: Manny Zarco MD Ordering Physician: Manny Zarco MD Date of Service: 01/13/25 Procedure(s): XR ribs LT min 3V w CXR1V Accession Number(s): [id number] cc: Manny Zarco MD CLINICAL HISTORY: RIB PAIN ON LEFT SIDE Single view of the chest with left rib films. COMPARISON: None FINDINGS: Normal heart and mediastinal contours. No consolidation. No pleural effusion or pneumothorax. Moderate mid to lower thoracic spondylosis. No fracture identified. IMPRESSION: 1. No acute cardiopulmonary abnormality. 2. No rib fracture identified. This document has been electronically signed by: Cem Shah MD on 01/14/2025 15:13:43 Dictated By: Cem Shah MD Signed By: <Electronically signed by Cem Shah MD in OV> 01/14/251514 DD/ 12 TD/TT: 01/14/251512 Commercial Drafter: [address] [address] XRay Report Signed Patient: Harry Garcia MR#: [id number] [birth year] : 1945 Acct:[id number] Age/Sex: 79 / M ADM Date: 01/13/25 Loc: HOEARLAY Attending Dr: Manny Zarco MD Ordering Physician: Manny Zarco MD Date of Service: 01/13/25 Procedure(s): XR rib s LT min 3V w CXR1V Accession Number(s): [id number] cc: Manny Zarco MD CLINICAL HISTORY: RI B PAIN ON LEFT SIDE Single view of the chest with left rib films. COMPARISON: None FINDINGS: Normal heart and mediastinal contours. No consolidation. No pleural effusion or pneumothorax. Moderate mid to lowe r thoracic spondylosis. No fracture identified. IMPRESSION: 1. No acute cardiopulmonary abnormality. 2. No rib fracture identified. This document has be en electronically signed by: Cem Shah MD on 01/14/2025 15:13:43 Dictated By: Cem Shah MD Signed By: <Electronically signed by Cem Shah MD in OV> 01/14/25 1515 DD/ 151 TD/TT: 01/14/25 151 Commercial Drafter: Reason For Referral No Information Medications Medication SIG (Take, Route, Frequency, Duration) Notes Start Date End Date Status Atorvastatin Calcium 80 MG Take 1 tablet by mouth once daily Active EpiPen 2-Byron 0.3 MG/0.3ML as directed In jection once as needed for 1 days 05/06/2024 Active Levothyroxine Sodium 150 MCG take 1 tablet by mouth once daily on an empty stomach in the morning Orally Once a day for 90 days Active Aspirin 81 MG 1 tablet Orally Once a day for 30 day(s) Active Metoprolol Succinate ER 100 MG Take 1 tablet by mouth once daily for 90 Active Ibuprofen 800 MG 1 tablet with food o r milk as needed Orally Three times a day for 30 days 11/26/2020 Not-Taking Cialis 20 MG 1 tablet Orally Once a day for 90 days 03/12/2015 Not-Taking Immunizations Vaccine Route Administration Date Status Comme nts Flu Vaccine IM Intramuscular 2011 Administered Flu Vaccine IM Intramuscular 08/13/2012 Administered PPSV23 (Pnemovax) IM Intramuscular 08/16/2012 Administered DECLINED, PREVNAR 13 Unknown 02/15/2013 Administered Flu Vaccine IM Intramuscular 08/16/2013 Administered Flu Vaccine IM Intramuscular 09/05/2014 Administered zFluzone Quadrivalent IM Intramuscular 09/11/2015 Administ ered Fluarix Quadrivalent IM Intramuscular 09/27/2016 Administe red Prevnar 13 IM Intramuscular 04/10/2017 Administered Fluarix Quadrivalent IM Intramuscular 11/03/2017 Administe red Fluarix Quadrivalent IM Intramuscular 11/06/2018 Administe red Fluarix Quadrivalent IM Intramuscular 11/12/2019 Administe red PPSV23 (Pnemovax) IM Intramuscular 06/09/2020 Administered Influenza High Dose IM Intramuscular 06/30/2020 Administer ed SARS-COV-2 Pfizer Unknown 11/27/2020 Administered SARS-COV-2 Pfizer Unknown 12/22/2020 Administered Influenza High Dose IM Intramuscular 07/16/2021 Administer ed SARS-COV-2 Pfizer Unknown 09/20/2021 Administered Influenza High Dose IM Intramuscular 07/26/2022 Administer ed Influenza High Dose IM Intramuscular 08/12/2024 Administer ed Social History Tobacco Use: Social History Observation Description Date Details (start date - stop date) Never Smoker NA - NA Tobacco Use/Smoking Question Answer Notes Patient is a nonsmoker Additional Findings: Tobacco Non-User Cu rrent non-smoker, currently using no form of tobacco Alcohol Screen Question Answer Notes Did you have a drink containing alcohol in the p ast year? No Points 0 Interpretation Negative Problems Problem Type SNOMED Code ICD Code Onset Dates Problem Status W/U Status Risk Notes Problem Coronary artery disease (80006805) CAD (414.00) Active confirmed Problem 862271862 Reflux esophagit is (K21.00) Active confirmed Problem 55329144 Essential hypert ension (I10) Active confirmed Problem 952325306 Acquired hypothy roidism (E03.9) Active confirmed Problem 6981317 Prediabetes (R73.09) Active confirmed Problem 643983721 Low HDL (under 4 0) (E78.6) Active confirmed Problem 383197228 History of coron jyothi artery stent placement (Z95.5) Active confirmed Problem 12012530 Sciatica of left side (M54.32) Active confirmed Problem 711283297 H/O bee sting al lergy (Z91.030) Active confirmed Problem Chronic sinusitis (08802934) Recurrent sinus infections (J32.9) Active confirmed Problem 653348541 Pure hypercholesterolemia (E78.00) Active confirmed Problem 322680153 History of tongu e cancer (Z85.810) Active confirmed Problem 831169975 Arthritis of kne e (M17.10) Active confirmed Problem 048526160 Hx of thyroid irradiation (Z92.3) Active confirmed Problem 785601777 Unilat ing herni a (K40.90) Active confirmed Problem 305770328 Age-related inci pient cataract, unspecified laterality (H25.099) Active confirmed Vital Signs Blood pressure diastolic 60 mm Hg 01/13/2025 Height 71 in 01/13/2025 Blood pressure systolic 172 mm Hg 01/13/2025 Weight 196 lbs 01/13/2025 BMI 27.33 kg/m2 01/13/2025 Encounters Encounter Location Date Provider Diagnosis Manny Zarco MD [address] [place] [id number] 11/14/2024 Manny Zarco Prediabetes R73.09 Manny Zarco MD [address] [place] [id number] 02/04/2025 Manny Zarco Essential hypertensi on I10 ; Prediabetes R73.09 ; Pure hypercholesterolemia E78.00 and Acquired hypothyroidism E03.9 Manny Zarco MD [address] [place] [id number] 02/09/2024 Manny Zarco Essential hypertensi on I10 ; History of tongue cancer Z85.810 ; History of coronary artery stent placement Z95.5 ; Acquired hypothyroidism E03.9 ; Encounter for prostate cancer screening Z12.5 ; Prediabetes R73.09 ; Pure hypercholesterolemia E78.00 ; Colon cancer screening Z12.11 and Depression screening Z13.31 Manny Zarco MD [address] [place] [id number] 05/06/2024 Manny Zarco Localized edema R60. 0 and H/O bee sting allergy Z91.030 Manny Zarco MD [address] [place] [id number] 08/12/2024 Manny Zarco Prediabetes R73.09 ; Pure hypercholesterolemia E78.00 ; Acquired hypothyroidism E03.9 and Encounter for immunization Z23 Manny Zarco MD [address] [place] [id number] 08/16/2024 Manny Zarco Prediabetes R73.09 ; Pure hypercholesterolemia E78.00 ; Acquired hypothyroidism E03.9 and Essential hypertension I10 Manny Zarco MD [address] [place] [id number] 11/21/2024 Manny Zarco Encounter for Medica re annual wellness exam V70.0 ; Liver enzyme elevation R74.8 and Acquired hypothyroidism E03.9 Manny Zarco MD [address] [place] [id number] 01/13/2025 Manny Zarco Rib pain on left geronimo e R07.81 Manny Zarco MD [address] [place] [id number] 01/16/2025 Manny Zarco Rib pain R07.81 Assessments Encounter Date Diagnosis (ICD Code) Assessment Notes Treatment Notes Treatment Clinical Notes Section Notes 11/14/2024 Prediabetes (ICD-10 - R73.09) 02/04/2025 Essential hypertensi on (ICD-10 - I10) 02/09/2024 Essential hypertensi on (ICD-10 - I10) doing well on meds, will continue current regiment 02/09/2024 History of tongue cancer (ICD-10 - Z85.810) no sign of recurrence 05/06/2024 Localized edema (ICD -10 - R60.0) no evidence of any phlebitis 05/06/2024 H/O bee sting allerg y (ICD-10 - Z91.030) patient verbalized understanding of medication and directions for use 08/12/2024 Prediabetes (ICD-10 - R73.09) 08/12/2024 Pure hypercholesterolemia (ICD-10 - E78.00) 08/16/2024 Prediabetes (ICD-10 - R73.09) good a1c, no need for medication at ths time 08/16/2024 Pure hypercholesterolemia (ICD-10 - E78.00) lft little high from the statin, will continue current regiment and will continue to monitor 11/21/2024 Encounter for Medica re annual wellness exam (ICD9-CM - V70.0) order faxed to [facility] dept 11/21/2024 Liver enzyme elevati on (ICD-10 - R74.8) 01/13/2025 Rib pain on left geronimo e (ICD-10 - R07.81) if the xray doesn't show anything will get a bone scan. XRAY PRINTED AND GIVEN TO PATIENT 01/16/2025 Rib pain (ICD-10 - R07.81) Order made and will fax to [facility] 02/04/2025 Prediabetes (ICD-10 - R73.09) 02/09/2024 History of coronary artery stent placement (ICD-10 - Z95.5) no pains 08/12/2024 Acquired hypothyroid ism (ICD-10 - E03.9) 08/16/2024 Acquired hypothyroid ism (ICD-10 - E03.9) tsh too high. increase the levothy to 150 11/21/2024 Acquired hypothyroid ism (ICD-10 - E03.9) 02/04/2025 Pure hypercholesterolemia (ICD-10 - E78.00) 02/09/2024 Acquired hypothyroid ism (ICD-10 - E03.9) stable, will continue current regiment 08/12/2024 Encounter for immunization (ICD-10 - Z23) 08/16/2024 Essential hypertensi on (ICD-10 - I10) well controlled, will continue current regiment 02/04/2025 Acquired hypothyroid ism (ICD-10 - E03.9) 02/09/2024 Encounter for prosta te cancer screening (ICD-10 - Z12.5) pending labs 02/09/2024 Prediabetes (ICD-10 - R73.09) stable, no need for medication at ths time 02/09/2024 Pure hypercholesterolemia (ICD-10 - E78.00) stable, will continue current regiment 02/09/2024 Colon cancer screeni ng (ICD-10 - Z12.11) guaiac negative 02/09/2024 Depression screening (ICD-10 - Z13.31) negative screen Plan Of Treatment Pending Test Test Name Order Date Electrocardiogram (EKG) 03/11/2016 XR RIBS LT + PA CHEST 01/13/2025 US ABD 11/21/2024 US ABD 06/18/2021 Complete Blood Count Auto Diff Comprehensive [place]. Panel Fast Liver Panel 08/16/2024 Lipid Panel 02/04/2025 PSA,Total (Free>4and<10) 02/04/2025 TSH reflex Free T4 02/04/2025 TSH reflex Free T4 08/16/2024 Microalbumin, Random 02/04/[address] fusion whole body 01/16/2025 Hemoglobin A1c 02/04/2025 UA ClnCatch+Micro w/rflx Cult 02/04/2025 Next Appt Details Provider Name:Mannyelsa Dow ier, 02/11/2025 01:00:00 PM, [address], [address], [place], [place], [phone], Provider Name:Manny Dow ier, 11/24/2025 10:00:00 AM, [address], [address], [place], [place], [phone], Insurance Providers Payer Name Payer Address Payer Phone Subscriber Number Group Number Insured Name Patient Relationship to Insured Coverage Start Date Coverage End Date MEDICARE [employer] [place] [address] [place] [address] [id number] Jose Nasir Self - patient is the insured WELIA [employer]O [employer] [address] [place] [phone] [id number] Luckane Nasir Self - patient is the insured Medical (General) History Medical History History ICD Code stent 2009 colonoscopy 2008 due 2019; c olonoscopy done 10/18/[address] Ward - no further testing HX of stool positive guaiac Surgical History Surgery Date(Month/Year) Rt Inguinal Hernia Repair w/mesh by Dr. Forrest 10/2016
--- OUTSIDE RECORDS SUMMARY | 2025-02-04 12:46 | XMS_ITS ---
Author Organization Manny Zarco MD Address [address] [place], [place] [id number] Care Team Providers Care Field Services Manager Name Role Phone Manny Zarco Primary Care Provider Allergies No Known Allergies REASON FOR VISIT right back pain no injury but has been working in the yard Medications Medication SIG (Take, Route, Frequency, Duration) [...] Once a day for 30 day(s) Active Cialis 20 MG 1 tablet Orally Once a day for 90 days 03/12/2015 Not-Taking Metoprolol Succinate ER 100 MG Take 1 tablet by mouth once daily for 90 Active Ibuprofen 800 MG 1 tablet with food o r milk as needed Orally Three times a day for 30 days 11/26/2020 Not-Taking Vital Signs Blood pressure systolic 172 mm Hg 01/14/20 25 Blood pressure diastolic 60 mm Hg 025 Height 71 in 01/13/2025 Weight 196 lbs 01/13/2025 BMI 27.33 kg/m2 01/13/2025 Encounters Encounter Location Date Provider Diagnosis Manny Zarco MD [address] [place] [address] [place] [phone] 01/13/2025 Manny Zarco Rib pain on left side R07.81 Assessments Encounter Date Diagnosis (ICD Code) Assessment Notes Treatment Notes Treatment Clinical Notes Section Notes 01/13/2025 Rib pain on left side (ICD-10 - R07.81) if the xray doesn't show anything will get a bone scan. XRAY PRINTED AND GIVEN TO PATIENT Plan Of Treatment Treatment Notes Assessment Notes Rib pain on left side if the xray doesn' t show anything will get a bone scan. XRAY PRINTED AND GIVEN TO PATIENT Pending Test Test Name Order Date XR RIBS LT + PA CHEST 01/13/2025 Next Appt Details Provider Name:Manny Dow ier, 02/11/2025 01:00:00 PM, [address] [place] [address], [place] [address], [place], [place], [phone], Provider Name:Manny Dow ier, 11/24/2025 10:00:00 AM, [address] [place] [address], [place] [address], [place], [place], [phone], Progress Notes * Nasir GARCIA PDOB: [birth year] (79 yo M)Acc No.[id number]:01/13/2025 Progress Notes Patient:?Nasir GARCIA Provider:?Manny Zarco MD :1945???Age:79 Y???Sex:Male Diego e:01/13/2025 Address[facility] [place] [facility] [id number] Subjective: * Chief Complaints: * ???Right back pain no injury but has been working in the yard * HPI: ???Symptom(s):?patient is a 79 yo male here for complaint of having back pain today. having trouble sleeping. didn't hurt itin left flank. hurts when pressing on it it hurts. has been one month. * ROS:?General/Constitutional:?Denies?Chills.?Denies?Fatigue.?Denies?Fever.?Denies?Headache.?ENT:?Patient denies?decreased sense of smell, any loss of taste, sore throat.?Denies?Sore throat.?Respiratory:?Denies?Cough.?Denies?Shortness of breath at rest.?Denies?Shortness of breath with exertion.?Gastrointestinal:?Denies?Diarrhea.?Denies?Nausea.?Musculoskeletal:?Patient denies?muscle aches.?Peripheral Vascular:?Patient denies?red and blue toes.? * Medical History:? * Surgical History:? * Hospitalization/Major Diagno stic Procedure:? * Medications:?TakingAspirin 8 1 MG Tablet Chewable 1 tablet Orally Once a day EpiPen 2-Byron 0.3 MG/0.3ML Solution Auto-injector as directed Injection once as needed Levothyroxine Sodium 150 MCG Tablet take 1 tablet by mouth once daily on an empty stomach in the morning Orally Once a day Atorvastatin Calcium 80 MG Tablet Take 1 tablet by mouth once daily Metoprolol Succinate ER 100 MG Tablet Extended Release 24 Hour Take 1 tablet by mouth once daily Taking Aspirin 81 MG Tablet Chewable 1 tablet Orally Once a day Taking EpiPen 2-Byron 0.3 MG/0.3ML Solution Auto-injector as directed Injection once as needed Taking Levothyroxine Sodium 150 MCG Tablet take 1 tablet by mouth once daily on an empty stomach in the morning Orally Once a day Taking Atorvastatin Calcium 80 MG Tablet Take 1 tablet by mouth once daily Taking Metoprolol Succinate ER 100 MG Tablet Extended Release 24 Hour Take 1 tablet by mouth once daily Not-Taking/PRNIbuprofen 800 MG Tablet 1 tablet with food or milk as needed Orally Three times a day Cialis 20 MG Tablet 1 tablet Orally Once a day Medication List reviewed and reconciled with the patientNot-Taking/PRN Ibuprofen 800 MG Tablet 1 tablet with food or milk as needed Orally Three times a day Not-Taking/PRN Cialis 20 MG Tablet 1 tablet Orally Once a day Medication List reviewed and reconciled with the patient * Allergies:?N.K.D.A.yes[Aller gies Verified] Objective: * Vitals:?Ht: 71, Wt: 196, BMI :27.33, BP:172/60, Repeat BP:138/60, Wt-k.91. * Examination: ???General Examination: ?GENERAL APPEARANCE:?alert, well hydrated, in no distress, male.?HEAD:?normocephalic.?SKIN:?good turgor.?HEART:?no murmurs, rubs, gallops, regular rate and rhythm.?LUNGS:?no wheezes, rales, rhonchi, good air movement, clear to auscultation bilaterally.?CHEST:?abnormal with tenderness in the left posterior ribs.? Assessment: * Assessment: 1.?Rib pain on left side - R 07.81 (Primary)??? Plan: * Treatment: * Procedure Codes:? * * Sign off status: Completed true * Provider:?Manny Zarco MD Date:?0 01/13/2025 Generated for Jesus Alberto alarcon/Zulma/Aleitting on:?02/04/2025 12:45 PM EDT History and Physical Notes * HPI (History of Present Illness) Category Sub-Category Detail Notes Category Not es Symptom(s) patient is a 79 yo male here for complaint of having back pain today. having trouble sleeping. didn't hurt itin left flank. hurts when pressing on it it hurts. has been one month. Examination Category Sub-Category Detail Notes Category Not es General Examination GENERAL APPEARANCE: alert, w ell hydrated, in no distress, male HEAD: normocephalic HEART: no murmurs, rubs, ga llops, regular rate and rhythm CHEST: abnormal with tender ness in the left posterior ribs LUNGS: no wheezes, rales, r honchi, good air movement, clear to auscultation bilaterally SKIN: good turgor
--- OUTSIDE RECORDS SUMMARY | 2025-02-04 12:46 | XMS_ITS ---
Author Organization Manny Zarco MD Address [address] [place], [place] [phone] Care Team Providers Care Packaging Clerk Name Role Phone Manny Zarco Primary Care Provider REASON FOR VISIT Nuclear Bone SCan Encounters Encounter Location Date Provider Diagnosis Manny Zarco MD [address] [place] [address] [place] [phone] 01/16/2025 Manny Zarco Rib pain R07.81 Assessments Encounter Date Diagnosis (ICD Code) Assessment Notes Treatment Notes Treatment Clinical Notes Section Notes 01/16/2025 Rib pain (ICD-10 - R07.81) Order made and will fax to [facility] Plan Of Treatment Treatment Notes Assessment Notes Rib pain Order made and will fax to [facility] Pending Test Test Name Order Date PET CT fusion whole body 01/16/2025 Next Appt Details Provider Name:Manny gregorio, 02/11/2025 01:00:00 PM, [address] [place] [address], [place] [address], [place], [place], [phone], Provider Name:Manny gregorio, 11/24/2025 10:00:00 AM, [address], [address], [place], [phone], Progress Notes * Nasir GARCIA PDOB: [birth year] (79 yo M)Acc No.[id number]:01/16/2025 Patient:?Nasir GARCIA :1945???Age:79 Y???Sex:Male Address:[address] [place] [address] Subjective: * Chief Complaints: * ???Nuclear Bone SCan * Medical History:? * Surgical History:? * Hospitalization/Major Diagno stic Procedure:? * Medications:? Objective: * Vitals:? * Physical Examination:? Assessment: * Assessment: 1.?Rib pain - R07.81??? Plan: * Treatment: * Procedure Codes:? * true * Date:? Generated for Jesus Alberto alarcon/Zulma/Poojasmitting on:?02/04/2025 12:45 PM EDT
--- OUTSIDE RECORDS SUMMARY | 2025-02-04 12:46 | XMS_ITS | Clinical Summary ---
Author Organization [facility] Address [address] [place] [address] Care Team Providers Care Geriatric Case Manager Name Role Phone Manny Zarco MD Primary Care Provider [phone]- [phone] Allergies No known active allergies Medications Medication Sig Dispensed Refills Start Date End Date Status metoprolol succinate (TOPROL-XL) 24 hr tablet 100 mg Take 100 mg by mouth daily. 0 Active aspirin 81 MG chewable tablet Chew 81 mg by mouth daily. 0 Active ondansetron (ZOFRAN) 8 MG tablet Take 8 mg by mouth every 8 (eight) hours as needed for nausea. 0 Active oxyCODONE (ROXICODONE) 5 MG immediate release tablet Take 5 mg by mouth as needed for pain. 0 Active atorvastatin (LIPITOR) tablet 80 mg Take 80 mg by mouth daily. 0 Active levothyroxine (SYNTHROID, LEVOXYL) tablet 50 mcg Take 50 mcg by mouth every morning on an empty stomach. 0 Active Active Problems Problem Noted Date Diagnosed Date Head and neck cancer 06/27/2017 Family History Medical History Relation Name Comments Cancer Mother lung Relation Name Status Comments Mother Social History Tobacco Use Types Packs/Day Years Used Date Smoking Tobacco: Never Smokeless Tobacco: Never Alcohol Use Standard Drinks/Week Comments No 0 (1 standard drink = 0.6 oz pur e alcohol) Sex and Gender Information Value Date Recorded Sex Assigned at Not on file Gender Identity Not on file Sexual Orientation Not on file Last Filed Vital Signs Vital Sign Reading Time Taken Comments Blood Pressure 143/55 01/22/2019 9:03 AM EDT Pulse 59 01/22/2019 9:03 AM EDT Temperature 36.8 ??C (98.3 ??F) 01/22/2019 9:03 AM ED T Respiratory Rate - - Oxygen Saturation - - Inhaled Oxygen Concentration - - Weight 94.3 kg (208 lb) 01/22/2019 9:03 AM EDT Height 180.3 cm (5' 11 ) 01/22/2019 9:03 AM EDT Body Mass Index 29.01 01/22/2019 9:03 AM EDT Plan of Treatment Health Maintenance Due Date Last Done Comments Hepatitis C Screening 1945 COVID-19 Vaccine (#1) 1950 Pneumococcal Vaccine (1 of 2 - PCV) 1951 Depression Screening 1957 Preventative Health Evaluation 1963 DTap / Tdap / Td (1 - Tdap) 1964 Shingrix-Zoster Vaccine (1 of 2) 1964 Fall Risk Assessment 2010 RSV Adult > 60+ Yrs or Pregn ant (1 - 1-dose 75+ series) 2020 Influenza Vaccine (#1) 2024 Hepatitis B Vaccines Aged Out No long er eligible based on patient's age to complete this topic RSV Ped < 20 months Aged Out No longe r eligible based on patient's age to complete this topic Care Teams Geriatric Case Manager Relationship Specialty Start Date End Date Manny Zarco MD [address] [place] [address] [address] [place] [phone] PCP - General Internal Medicine 06/19/17
== END 2025-02-04 07:16 | disposition home or self-care (01) ==
LOC: HO.LNP 07:15
PROVIDERS: Visit Provider Internal Medicine
DX: I10 Essential (primary) hypertension (principal); R73.09 Other abnormal glucose; E78.00 Pure hypercholesterolemia, unspecified; E03.9 Hypothyroidism, unspecified; Z12.5 Encounter for screening for malignant neoplasm of prostate
CPT/HCPCS: 80053; 80061; 81001; 82043; 82570; 83036; 84153; 84443; 85025

== ENCOUNTER 2025-03-20 13:46 | Outpatient (REF) | payer MEDICARE, OTHER, SELFPAY ==
--- NOTE | ~2025-03-20 | US_ITS ---
EXAMINATION: US EXTRACRANIAL CAROTID DUPLEX, BILATERAL CLINICAL INFORMATION: Bruit COMPARISON: None available. TECHNIQUE: Real-time ultrasound and Doppler techniques (integrating B-mode 2-D vascular images, Doppler spectral analysis and color-flow Doppler imaging) were utilized to interrogate the extracranial carotid arteries, the vertebral arteries and proximal subclavian arteries bilaterally. The degree of stenosis is determined by criteria similar to NASCET. FINDINGS: Right Side: 1. There is irregular calcified atherosclerotic plaque seen in the bifurcation/proximal ICA region. 2. The common carotid artery PSV proximally is 91 cm/s and distally 71 cm/s. 3. The proximal internal carotid artery velocities are 77 cm/s systolic and 16 cm/s diastolic. 4. The proximal external carotid artery PSV is 126 cm/s. 5. The vertebral artery shows antegrade flow. 6. The subclavian artery waveforms are triphasic. Left Side: 1. There is calcified atherosclerotic plaque seen in the bifurcation/proximal ICA region. 2. The common carotid artery PSV proximally is 90 cm/s and distally 69 cm/s. 3. The proximal internal carotid artery velocities are 64 cm/s systolic and 16 cm/s diastolic. 4. The proximal external carotid artery PSV is 118 cm/s. 5. The vertebral artery shows antegrade flow. 6. The subclavian artery waveforms are triphasic. US/US carotid duplex BI IMPRESSION: 1. RIGHT: Calcified plaques representing 0-49% stenosis by ultrasound criteria, right ICA. 2. LEFT: Calcified plaques representing 0-49% stenosis by ultrasound criteria, left ICA Electronically signed by: Dre Rodriguez MD 03/20/2025 02:23 PM EDT
--- OUTSIDE RECORDS SUMMARY | 2025-03-20 13:55 | XMS_ITS ---
Author Organization Manny Zarco MD Address [address] [place], [place] [phone] Care Team Providers Care Coal Mine Inspector Name Role Phone Manny Zarco Primary Care Provider [phone] REASON FOR VISIT Nuclear Bone SCan Encounters Encounter Location Date Provider Diagnosis Manny Zarco MD [address] [place] [address] [place] [phone] 01/16/2025 Manny Zarco Rib pain R07.81 Assessments Encounter Date Diagnosis (ICD Code) Assessment Notes Treatment Notes Treatment Clinical Notes Section Notes 01/16/2025 Rib pain (ICD-10 - R07.81) Order made and will fax to [facility] Plan Of Treatment Treatment Notes Assessment Notes Rib pain Order made and will fax to [facility] Pending Test Test Name Order Date PET CT fusion whole body 01/16/2025 Next Appt Details Provider Name:Manny gregorio, 03/25/2025 08:00:00 AM, [address] [place] [address], Suite [facility], [place], [place], [phone], Provider Name:Manny gregorio, 04/07/2025 11:00:00 AM, [address], [address], [place], [phone], Provider Name:Manny Dow ier, 07/22/2025 08:00:00 AM, [address], [address], [place], [phone], Provider Name:Manny Dow ier, 07/28/2025 02:00:00 PM, [address], [address], [place], [phone], Provider Name:Manny Pavel Sarathalexi ier, 11/24/2025 10:00:00 AM, [address], [address], [place], [phone], Provider Name:Manny Dow ier, 02/05/2026 08:15:00 AM, [address] [place] [address] Drive, [address], [place], [phone], Provider Name:Manny Dow ier, 02/12/2026 01:00:00 PM, [address] [place] [address] Drive, [address], [place], [phone], Progress Notes * LILIAMNasir PDOB: [birth year] (79 yo M)Acc No.[id number]:01/16/2025 Patient:?Nasir GARCIA Pavel :1945???Age:79 Y???Sex:Male Address:[address] [place] [address] Subjective: * Chief Complaints: * ???Nuclear Bone SCan * Medical History:? * Surgical History:? * Hospitalization/Major Diagno stic Procedure:? * Medications:? Objective: * Vitals:? * Physical Examination:? Assessment: * Assessment: 1.?Rib pain - R07.81??? Plan: * Treatment: * Procedure Codes:? * true * Date:? Generated for Kandii agnes/Zulma/eTransmitting on:?03/20/2025 01:55 PM EDT
== END 2025-03-20 13:47 | disposition home or self-care (01) ==
LOC: HO.US 13:46
PROVIDERS: PCP Internal Medicine; Visit Provider Internal Medicine
DX: R09.89 Other specified symptoms and signs involving the circulatory and respiratory systems (principal)
CPT/HCPCS: 93880

== ENCOUNTER → 2025-03-20 13:59 | Outpatient (BNV) | payer MEDICARE, OTHER, SELFPAY | PROVIDERS: PCP Internal Medicine; Visit Provider Radiology Diagnostic Radiology | DX: I65.23 Occlusion and stenosis of bilateral carotid arteries (principal) | CPT/HCPCS: 93880 ==

== ENCOUNTER 2025-03-25 09:45 | Outpatient (REF) | payer MEDICARE, OTHER, SELFPAY ==
[2025-03-25 10:50] LABS: Alanine Aminotransferase 61 U/L (0-40); Albumin Level 3.9 g/dL (3.5-5.0); Alkaline Phosphatase 272 U/L (39-117); Aspartate Amino Transferase 56 U/L (5-37); Bilirubin Direct 0.2 mg/dL (0.0-0.5); Bilirubin Total 0.6 mg/dL (0.0-1.0); Total Protein 6.8 g/dL (6.5-8.0)
--- OUTSIDE RECORDS SUMMARY | 2025-03-25 10:53 | XMS_ITS | Clinical Summary ---
Author Organization [facility] Address [address] [place] [address] Care Team Providers Care Ice Crusher Name Role Phone Manny Zarco MD Primary Care Provider [phone]- [phone] Allergies No known active allergies Medications Medication [...] - 1-dose 75+ series) 2020 Influenza Vaccine (Season Ended) 2025 Hepatitis B Vaccines Aged Out No long er eligible based on patient's age to complete this topic RSV Ped < 20 months Aged Out No longe r eligible based on patient's age to complete this topic Care Teams Ice Crusher Relationship Specialty Start Date End Date Manny Zarco MD [address] [place] [address] Drive [address] [place] [phone] PCP - General Internal Medicine 06/19/17
== END 2025-03-25 09:46 | disposition home or self-care (01) ==
LOC: HO.LNP 09:45
PROVIDERS: Visit Provider Internal Medicine
DX: R74.8 Abnormal levels of other serum enzymes (principal)
CPT/HCPCS: 80076

== ENCOUNTER 2025-05-05 15:34 | Outpatient (REF) | payer MEDICARE, OTHER, SELFPAY ==
--- OUTSIDE RECORDS SUMMARY | 2025-04-07 07:00 | XMS_ITS ---
Author Organization Manny Zarco MD Address [address] [place], [place] [phone] Care Team Providers Care Landing Scaler Name Role Phone Manny Zarco Primary Care Provider Allergies No Known Allergies REASON FOR VISIT follow up appt/ must see US Carotid Medications Medication SIG (Take, Route, Frequency, Duration) Notes Start Date End Date Status Ibuprofen 800 MG 1 tablet with food o r milk as needed Orally Three times a day for 30 days 11/26/2020 Not-Taking Atorvastatin Calcium 80 MG Take 1 tablet by mouth once daily for 90 Active Metoprolol Succinate ER 100 MG Take 1 tablet by mouth once daily Active Levothyroxine Sodium 150 MCG take 1 tablet by mouth once daily on an empty stomach in the morning Orally Once a day Active Aspirin 81 MG 1 tablet Orally Once a day for 30 day(s) Active Cialis 20 MG 1 tablet Orally Once a day for 90 days 03/12/2015 Not-Taking Problems Problem Type SNOMED Code ICD Code Onset Dates Problem Status W/U Status Risk Notes Problem Carotid artery disease (401500246) Carotid artery disease (I77.9) Active confirmed Problem Dilated bile duct (K83.8) Active confirmed Vital Signs Blood pressure systolic 134 mm Hg 04/07/20 25 Blood pressure diastolic 60 mm Hg 025 Height 71 in 04/07/2025 Weight 195 lbs 04/07/2025 BMI 27.19 kg/m2 04/07/2025 Encounters Encounter Location Date Provider Diagnosis Manny Zarco MD [address] [place] [address] [place] [phone] 04/07/2025 Manny Zarco Pure hypercholestero lemia E78.00 ; Elevated LFTs R79.89 ; Carotid artery disease I77.9 and Dilated bile duct K83.8 Assessments Encounter Date Diagnosis (ICD Code) Assessment Notes Treatment Notes Treatment Clinical Notes Section Notes 04/07/2025 Pure hypercholesterolemia (ICD-10 - E78.00) needs the statins since he had stents 15 years ago 04/07/2025 Elevated LFTs (ICD-1 0 - R79.89) is probably from the statins. but not high enough to stop the statins. will follow. 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 but not high enough to stop the statins. will follow. had an us of liver which was good Dilated bile duct has been so for at l east 9 years Future Test Test Name Order Date Liver Panel 07/08/2025 Lipid Panel 07/08/2025 Next Appt Details Follow Up: 3 Months, Reason: Provider Name:Manny gregorio, 05/09/2025 10:30:00 AM, [address] [place] [address], Suite [facility], [place], [place], [phone], Provider Name:Manny gregorio, 07/22/2025 08:00:00 AM, [address] [place] [address], Suite [facility], [place], [place], [phone], Provider Name:Manny gregorio, 07/28/2025 02:00:00 PM, [address] [place] [address], Suite [facility], [place], [place], [phone], Provider Name:Manny Dow ier, 11/24/2025 10:00:00 AM, [address], [address], [place], [phone], Provider Name:Manny Dow ier, 02/05/2026 08:15:00 AM, [address], [address], [place], [phone], Provider Name:Manny Dow ier, 02/12/2026 01:00:00 PM, [address], [address], [place], [phone], Progress Notes * Nasir GARCIA PDOB: [birth year] (79 yo M)Acc No.[id number]:04/07/2025 Patient: Nasir JUAREZ Provider: Farhana Zarco MD :1945 A ge:79 Y S ex:Male Date:04/07/2025 [id number] Subjective: * Chief Complaints: * f ollow up appt/ must see US Carotid * HPI: S ymptom(s): patient is a 79 yo male here for follow up and discusssion of recent US/ has ulcer treatment./ is being treated at the wound center. * ROS: G eneral/Constitutional: Denies C hills. D enies F atigue. D enies F ever. D enies H eadache. E NT: Denies S ore throat. R espiratory: Denies C ough. D enies S hortness of breath at rest. D enies S hortness of breath with exertion. G astrointestinal: Denies D iarrhea. D enies N ausea. * Medical History: * Surgical History: * Hospitalization/Major Diagno stic Procedure: * Medications: T akingAspirin 81 MG Tablet Chewable 1 tablet Orally Once a day Levothyroxine Sodium 150 MCG Tablet take 1 tablet by mouth once daily on an empty stomach in the morning Orally Once a day Metoprolol Succinate ER 100 MG Tablet Extended Release 24 Hour Take 1 tablet by mouth once daily Atorvastatin Calcium 80 MG Tablet Take 1 tablet by mouth once daily Taking Aspirin 81 MG Tablet Chewable 1 tablet Orally Once a day Taking Levothyroxine Sodium 150 MCG Tablet take 1 tablet by mouth once daily on an empty stomach in the morning Orally Once a day Taking Metoprolol Succinate ER 100 MG Tablet Extended Release 24 Hour Take 1 tablet by mouth once daily Taking Atorvastatin Calcium 80 MG Tablet Take [...] reviewed and reconciled with the patient * Allergies: N .K.D.A.yes[Allergies Verified] Objective: * Vitals: H t: 71, Wt: 195, BMI:27.19, BP:134/60, Wt-k.45. * P ast Orders: L ab:Liver Panel (Order Date - 03/25/2025) (Collection Date & Time - 03/25/2025 08:00 AM) Value Reference Range Bilirubin Total 0.6 0.0-1.0 - mg/dL Bilirubin Direct 0.2 0.0-0.5 - mg/dL Aspartate Amino Transferase 56 H 5-37 - U/L Alanine Aminotransferase 61 H 0-40 - U/L Total Protein 6.8 6.5-8.0 - g/dL Albumin Level 3.9 3.5-5.0 - g/dL Alkaline Phosphatase 272 H 39-117 - U/L * Examination: G eneral Examination: GENERAL APPEARANCE: a lert, well hydrated, in no distress.? HEAD: n ormocephalic. SKIN: g ood turgor. HEART: r egular rate and rhythm, no murmurs, rubs, gallops.? LUNGS: n o wheezes, rales, rhonchi, good air movement, clear to auscultation bilaterally. Assessment: * Assessment: 1. P ure hypercholesterolemia - E78.00 (Primary) 2 . E levated LFTs - R79.89 3 . C arotid artery disease - I77.9 4 . D ilated bile duct - K83.8 Plan: * Treatment: 2. E levated LFTs Notes: is probably from the statins. but not high enough to stop the statins. will follow. had an us of liver which was good 3. D ilated bile duct Notes: has been so for at least 9 years * Procedure Codes: * Follow Up: 3 Months * * Sign off status: Completed true * Provider: Farhana Zarco MD Date: 0 04/07/2025 Generated for Jesus Alberto alarcon/Zulma/Aleitting on: 0 05/05/2025 04:45 PM EDT History and Physical Notes * HPI (History of Present Illness) Category Sub-Category Detail Notes Category Not es Symptom(s) patient is a 79 yo male here for follow up and discusssion of recent US/ has ulcer treatment./ is being treated at the wound center. Examination Category Sub-Category Detail Notes Category Not es General Examination GENERAL APPEARANCE: alert, w ell hydrated, in no distress HEAD: normocephalic HEART: regular rate and rhy thm, no murmurs, rubs, gallops LUNGS: no wheezes, rales, r honchi, good air movement, clear to auscultation bilaterally SKIN: good turgor
[2025-05-05 15:52] LABS: MANUAL DIFF FLAG NO
[2025-05-05 16:23] LABS: Hematocrit 37.7 % (42.0-52.0); Hemoglobin 11.9 g/dl (14.0-18.0); Imm Gran Abs Auto 0.02 X10*3/uL (0.00-0.03); Imm Gran Pct Auto 0.3 % (0.0-0.4); Lymphocytes Absolute Auto 1.4 X10*3/uL (1.2-4.9); Mean Corpuscular HGB Conc 31.6 g/dl (31.0-36.0); Mean Corpuscular Hemoglobin 29.5 pg (27.0-33.0); Mean Corpuscular Volume 93.5 fL (80.0-98.0); NRBC Abs Auto 0.000 X10*3/uL (0.0-0.012); NRBC Pct Auto 0.0 /100WBC (0.0-0.2); Platelet Count 441 X10*3/uL (160-400); Red Blood Count 4.03 X10*6/uL (4.60-5.80); White Blood Count 6.5 X10*3/uL (4.8-10.8)
[2025-05-05 16:35] LABS: Appearance Urine Clear; Glucose Urine UA Negative (Negative); PH 6.5 (5.0-9.0); Specific Gravity - Urine 1.015 (1.005-1.025)
--- OUTSIDE RECORDS SUMMARY | 2025-05-05 16:45 | XMS_ITS | Clinical Summary ---
Author Organization [facility] Address [address] [place] [address] Care Team Providers Care Stand Up Forklift Operator Name Role Phone Manny Zarco MD Primary Care Provider +1- [phone] Allergies No known active allergies Medications Medication [...] 59 01/22/2019 9:03 AM EDT Temperature 36.8 C (98.3 F) 01/22/2019 9:03 AM EDT Respiratory Rate - - Oxygen Saturation - [...] 1-dose 75+ series) 2020 Influenza Vaccine (#1) 2025 Hepatitis B Vaccines Aged Out No long er eligible based on patient's age to complete this topic RSV Ped < 20 months Aged Out No longe r eligible based on patient's age to complete this topic Care Teams Stand Up Forklift Operator Relationship Specialty Start Date End Date Manny Zarco MD [address] [place] [address] Drive [address] [place] [phone] PCP - General Internal Medicine 06/19/17
--- OUTSIDE RECORDS SUMMARY | 2025-05-05 16:46 | XMS_ITS | Patient Health Record ---
Author Organization [facility] Address [address] [place] [address] Care Team Providers Care Improvement Leader Name Role Phone Manny Zarco MD Primary Care Provider Chris Craft Unavailable [phone] Reason For Referral No Information Medications Medication SIG (Take, Route, Frequency, Duration) Notes Start Date End Date Status Levothyroxine Sodium 75 MCG 1 tablet in the morning on an empty stomach Orally Once a day for 30 day(s) Active Atorvastatin Calcium 80 MG 1 tablet Oral ly Once a day for 30 day(s) Active Aspir-Low 81 MG 1 tablet Orally Once a day for 30 day(s) Active Metoprolol Succinate ER 100 MG 1 tablet Orally Once a day for 30 day(s) Active Immunizations Vaccine Route Administration Date Status Comme nts Influenza Unknown 11/10/2018 Administered Social History Tobacco Use: Social History Observation Description Date Details (start date - stop date) Never Smoker NA - NA Tobacco Use/Smoking Question Answer Notes Patient is a nonsmoker Alcohol Screen Question Answer Notes Did you have a drink containing alcohol in the p ast year? No Points 0 Interpretation Negative Section Notes: Nonsmoker; recovering alcoho lic for 20 years Problems Problem Type SNOMED Code ICD Code Onset Dates Problem Status W/U Status Risk Notes Problem 535827587 Encounter for screening for malignant neoplasm of colon (Z12.11) Active confirmed Problem 511592746065449 Preprocedural examination (Z01.818) Active confirmed Problem 888278956 Long-term use of aspirin therapy (Z79.82) Active confirmed Plan Of Treatment Pending Test Test Name Order Date GI BIOPSY 10/18/2019 Future Test Test Name Order Date COLONOSCOPY 09/25/2019 Insurance Providers Payer Name Payer Address Payer Phone Subscriber Number Group Number Insured Name Patient Relationship to Insured Coverage Start Date Coverage End Date MEDICARE OF [place] [address] [place] [id number] MICAH RICKETTS Self - patient is the insured [place] [employer] 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 Negron, Dr. Peña Neg colonoscopy in approx 2008 by his re port Hyperlipidemia Hypothyroidism Surgical History Surgery Date(Month/Year) Knee surgery 1979' Cholecystectomy 2011 Right inguinal hernia repair 2016 Left hip replacement 2003
[2025-05-05 17:20] LABS: Alanine Aminotransferase 42 U/L (0-40); Albumin Level 4.1 g/dL (3.5-5.0); Alkaline Phosphatase 323 U/L (39-117); Anion Gap 13 (12-20); Aspartate Amino Transferase 41 U/L (5-37); Blood Urea Nitrogen 17 mg/dL (9-16); Calcium 9.8 mg/dL (8.4-10.2); Carbon Dioxide 25 mmol/L (22-29); Chloride 106 mmol/L (96-108); Estimated Glomerular Filt Rate 53; Potassium 4.5 mmol/L (3.3-5.1); Sodium 139 mmol/L (135-145); Total Protein 7.4 g/dL (6.5-8.0)
[2025-05-05 17:26] LABS: Osmolality, Serum 291 mosm/kg (281-305)
== END 2025-05-05 15:35 | disposition home or self-care (01) ==
LOC: HO.LAB 15:34
PROVIDERS: PCP Internal Medicine; Visit Provider Internal Medicine
DX: R35.89 Other polyuria (principal)
CPT/HCPCS: 36415; 80053; 81003; 83930; 85025

== ENCOUNTER 2025-07-18 12:56 | Outpatient (REF) | payer MEDICARE, OTHER, SELFPAY ==
--- OUTSIDE RECORDS SUMMARY | 2025-05-29 06:07 | XMS_ITS ---
Author Organization Manny Zarco MD Address [address] [place] [phone] Care Team Providers Care Gang Miner Name Role Phone Manny Zarco Primary Care Provider REASON FOR VISIT refill metoprolol 150mg Medications Medication SIG (Take, Route, Frequency, Duration) Notes Start Date End Date Status Metoprolol Succinate ER 100 MG Take 1.5 tablet by mouth once daily Orally Once a day for 90 days Active Encounters Encounter Location Date Provider Diagnosis Manny Zarco MD [address] [place] [phone] 05/29/2025 Manny Zarco Essential hypertension I10 Assessments Encounter Date Diagnosis (ICD Code) Assessment Notes Treatment Notes Treatment Clinical Notes Section Notes 05/29/2025 Essential hypertension (ICD-10 - I10) Plan Of Treatment Medication Medication Name Sig Start Date Stop Date Notes Metoprolol Succinate ER 100 MG Take 1.5 tablet by mouth once daily Orally Once a day for 90 days Next Appt Details Provider Name:Manny gregorio, 07/21/2025 02:15:00 PM, [address] [facility], [address] [place] [address], [phone], Provider Name:Manny Dow ier, 07/28/2025 02:00:00 PM, [address], [address], [place], [place], [phone], Provider Name:Manny Dow ier, 11/24/2025 10:00:00 AM, [address] [place] [address], [address], [place], [place], [phone], Provider Name:Manny Dow ier, 02/05/2026 08:15:00 AM, [address] [place] [address] Drive, [address], [place], [place], [phone], Provider Name:Manny Dow ier, 02/12/2026 01:00:00 PM, [address] [place] [address], [address], [place], [place], [phone], Progress Notes * Nasir GARCIA PDOB: [birth year] (79 yo M)Acc No.[id number]:05/29/2025 Patient: Carrie JACKSONRekhaNasir :1945 A ge:79 Y S ex:Male Address:[address] [place] [phone] * Refills Continue Metoprolol Succinate ER Tablet Extended Release 24 Hour, 100 MG, Orally, 145, Take 1.5 tablet by mouth once daily, Once a day, 90 days, Refills=5 * true * Date: Generated for Jesus Alberto aalrcon/Zulma/eTkiransmitting on: 0 07/18/2025 02:20 PM EDT
--- OUTSIDE RECORDS SUMMARY | 2025-06-16 05:15 | XMS_ITS ---
Author Organization Manny Zarco MD Address [address] [place], [place] [phone] Care Team Providers Care Overlock Elastic Attacher Name Role Phone Manny Zarco Primary Care Provider [phone] Allergies No Known Allergies REASON FOR VISIT 4 week Medications Medication SIG (Take, Route, Frequency, Duration) Notes Start Date End Date Status Metoprolol Succinate ER 100 MG Take 1.5 tablet by mouth once daily Orally Once a day for 90 days Active Atorvastatin Calcium 80 MG Take 1 tablet by mouth once daily for 90 Not-Taking Cialis 20 MG 1 tablet Orally Once a day for 90 days 03/12/2015 Not-Taking Ibuprofen 800 MG 1 tablet with food o r milk as needed Orally Three times a day for 30 days 11/26/2020 Not-Taking Levothyroxine Sodium 150 MCG take 1 tablet by mouth once daily on an empty stomach in the morning Orally Once a day Active Eliquis 5 MG as directed Orally twice a day Active Aspirin 81 MG 1 tablet Orally Once a day for 30 day(s) Active Problems Problem Type SNOMED Code ICD Code Onset Dates Problem Status W/U Status Risk Notes Problem Atrial fibrillation (14160844) Atrial fibrillation (I48.91) Active confirmed Vital Signs Blood pressure systolic 130 mm Hg 06/16/20 Blood pressure diastolic 54 mm Hg 025 Height 71 in 06/16/2025 Weight 190 lbs 06/16/2025 BMI 26.5 kg/m2 06/16/2025 weight is up 9 pounds since 05-09-25 Encounters Encounter Location Date Provider Diagnosis Manny Zarco MD [address] [place] [address] [place] [phone] 06/16/2025 Manny Zarco Gallstones K80.20 ; Atrial fibrillation I48.91 and History of coronary artery stent placement Z95.5 Assessments Encounter Date Diagnosis (ICD Code) Assessment Notes Treatment Notes Treatment Clinical Notes Section Notes 06/16/2025 Gallstones (ICD-10 - K80.20) had stent removed last week 06/16/2025 Atrial fibrillation (ICD-10 - I48.91) on eliquis 06/16/2025 History of coronary artery stent placement (ICD-10 - Z95.5) if liver is normal will restart atorvastatin Plan Of Treatment Treatment Notes Assessment Notes Gallstones had stent removed la st week Atrial fibrillation on eliquis History of coronary artery stent placeme nt if liver is normal will restart atorvastatin Next Appt Details Follow Up: 6 Weeks, Reason: Provider Name:Manny gregorio, 07/21/2025 02:15:00 PM, [address] [place] [address], [address] [place] [address], [phone], Provider Name:Manny gregorio, 07/28/2025 02:00:00 PM, [address] [place] [address], [address], [phone], Provider Name:Manny gregorio, 11/24/2025 10:00:00 AM, [address] [place] [address], [address], [phone], Provider Name:Manny gregorio, 02/05/2026 08:15:00 AM, [address] [place] [address], [address], [phone], Provider Name:Manny gregorio, 02/12/2026 01:00:00 PM, [address] [place] [address], [address] [place], [phone], Progress Notes * Nasir GARCIA PDOB: [birth year] (80 yo M)Acc No.[id number]:06/16/2025 Progress Notes Patient: Nasir JUAREZ Provider: Farhana Zarco MD :1945 A ge:79 Y S ex:Male Date:06/16/2025 Address: [facility] Subjective: * Chief Complaints: * 1 . 4 week. * HPI: S ymptom(s): patient is a 79 yo male here for 4 week follow up visit. here for follow up. had stent in bile ducts. had sepsis and went into afib. though there were stones left behind. * ROS: G eneral/Constitutional: Denies C hills. D enies F atigue. D enies F ever. D enies H eadache. E NT: Denies S ore throat. R espiratory: Denies C ough. D enies S hortness of breath at rest. D enies S hortness of breath with exertion. G astrointestinal: Denies D iarrhea. D enies N ausea. * Medical History: S tent 2008, colonoscopy 2008 due 2018; colonoscopy done 10/18/[address] Ward - no further testing, HX of stool positive guaiac. * Medications: T aking Eliquis 5 MG Tablet as directed Orally twice a day , Taking Aspirin 81 MG Tablet Chewable 1 tablet Orally Once a day , Taking Levothyroxine Sodium 150 MCG Tablet take 1 tablet by mouth once daily on an empty stomach in the morning Orally Once a day , Taking Metoprolol Succinate ER 100 MG Tablet Extended Release 24 Hour Take 1.5 tablet by mouth once daily Orally Once a day , Not-Taking/PRN Atorvastatin Calcium 80 MG Tablet Take 1 tablet by mouth once daily , Not-Taking/PRN Ibuprofen 800 MG Tablet 1 tablet with food or milk as needed Orally Three times a day , Not-Taking/PRN Cialis 20 MG Tablet 1 tablet Orally Once a day , Discontinued Diflucan 100 MG Tablet 1 tablet Orally daily , Medication List reviewed and reconciled with the patient * Allergies: N .K.D.A. Objective: * Vitals: H t: 71, Wt: 190, BMI:26.5, BP:130/54, Wt-k.18. weight is up 9 pounds since 05-09-25. * Examination: G eneral Examination: GENERAL APPEARANCE: a lert, well hydrated, in no distress.? HEAD: n ormocephalic. SKIN: g ood turgor. HEART: r egular rate and rhythm, no murmurs, rubs, gallops.? LUNGS: n o wheezes, rales, rhonchi, good air movement, clear to auscultation bilaterally. ABDOMEN: s oft, nontender, nondistended. ? Assessment: * Assessment: 1. G allstones - K80.20 (Primary) 2 . A trial fibrillation - I48.91 ? 3 . H istory of coronary artery stent placement - Z95.5 Plan: * Treatment: 2. A trial fibrillation Notes: on eliquis 3. H istory of coronary artery stent placement Notes: if liver is normal will restart atorvastatin * Follow Up: 6 Weeks * * The named appointment provid er may or may not be the originator of this progress note, and it is not deemed complete until electronically signed by the appointment provider. Sign off status: Pending * Provider: Farhana Zarco MD Date: 0 06/16/2025 Generated for Jesus Alberto alarcon/Zulma/Aleitting on: 0 07/18/2025 02:20 PM EDT History and Physical Notes * HPI (History of Present Illness) Category Sub-Category Detail Notes Category Not es Symptom(s) patient is a 79 yo male here for 4 week follow up visit. here for follow up. had stent in bile ducts. had sepsis and went into afib. though there were stones left behind. Examination Category Sub-Category Detail Notes Category Not es General Examination GENERAL APPEARANCE: alert, w ell hydrated, in no distress HEAD: normocephalic HEART: regular rate and rhy thm, no murmurs, rubs, gallops LUNGS: no wheezes, rales, r honchi, good air movement, clear to auscultation bilaterally ABDOMEN: soft, nontender, non distended SKIN: good turgor
--- OUTSIDE RECORDS SUMMARY | 2025-07-17 06:07 | XMS_ITS ---
Author Organization Manny Zarco MD Address [address] [place] [phone] Care Team Providers Care Laser Operator Name Role Phone Manny Zarco Primary Care Provider REASON FOR VISIT ER Visit rec'd Encounters Encounter Location Date Provider Diagnosis Manny Zarco MD [address] [place] [address] [place] [phone] 07/17/2025 Manny Zarco Plan Of Treatment Next Appt Details Provider Name:Manny usr, 07/21/2025 02:15:00 PM, [address] [place] [address], [address], [phone], Provider Name:Manny gregorio, 07/28/2025 02:00:00 PM, [address] [place] [address], [address], [phone], Provider Name:Manny gregorio, 11/24/2025 10:00:00 AM, [address] [place] [address], [address], [phone], Provider Name:Manny gregorio, 02/05/2026 08:15:00 AM, [address], [address], [place], [place], [phone], Provider Name:Manny Dow darline, 02/12/2026 01:00:00 PM, [address], [address], [place], [phone], Progress Notes * Nasir GARCIA PDOB: [birth year] (80 yo M)Acc No.[id number]:07/17/2025 Patient: Carrie ALONDRAFLAKONasir :1945 A ge:80 Y S ex:Male Address: [facility] [place] [address] * true * Date: Generated for Jesus Alberto alarcon/Zulma/Poojasmitting on: 0 07/18/2025 02:19 PM EDT
--- OUTSIDE RECORDS SUMMARY | 2025-07-18 04:00 | XMS_ITS ---
Author Organization Manny Zarco MD Address [address] [place] [phone] Care Team Providers Care Firer Bisque Kiln Name Role Phone Manny Zarco Primary Care Provider Results Component Value Reference Range Notes Hemoglobin A1c (Not yet revi ewed by provider) Interpretation: Performing Lab:[facility], [address] [place] [id number] Notes/Report: Hemoglobin A1c % 5.6 <6.0 % Hemoglobin A1C Reference Range Adults: 4.8 - 6.0 % Non diabetic: < 6.0 % Goal: < 7.0 % Additional Action Suggested: > 8.0 % Note: Hemoglobin A1c results are invalid for patients with abnormal amounts of HbF. Blood transfusions may impact the HbA1c concentration in the patient sample. Estimated Average Glucose 114 eAG = Estimated average glucose which is %A1C expressed as average glucose, using the formula of the J3U-Vskfseo Average Glucose study (ADAG), Diabetes Care, Vol.31,#8, 2007 REASON FOR VISIT fasting lipids/ liver Medications Medication SIG (Take, Route, Frequency, Duration) Notes Start Date End Date Status Eliquis 5 MG as directed Orally twice a day Active Atorvastatin Calcium 80 MG Take 1 tablet by mouth once daily for 90 Not-Taking Metoprolol Succinate ER 100 MG Take 1.5 tablet by mouth once daily Orally Once a day for 90 days Active Levothyroxine Sodium 150 MCG take 1 [...] a day for 30 days 11/26/2020 Not-Taking Encounters Encounter Location Date Provider Diagnosis Manny Zarco MD [address] [place] [phone] 07/18/2025 Manny Zarco Prediabetes R73.09 a nd Pure hypercholesterolemia E78.00 Assessments Encounter Date Diagnosis (ICD Code) Assessment Notes Treatment Notes Treatment Clinical Notes Section Notes 07/18/2025 Prediabetes (ICD-10 - R73.09) 07/18/2025 Pure hypercholesterolemia (ICD-10 - E78.00) Plan Of Treatment Pending Test Test Name Order Date Liver Panel 07/18/2025 Glucose Fasting 07/18/2025 Lipid Panel with Reflex 07/18/2025 Hemoglobin A1c 07/18/2025 Next Appt Details Provider Name:Manny gregorio, 07/21/2025 02:15:00 PM, [address] [place] [address], [address], [phone], Provider Name:Manny gregorio, 07/28/2025 02:00:00 PM, [address] [place] [address], [phone], Provider Name:Manny gregorio, 11/24/2025 10:00:00 AM, [address] [place] [address], [phone], Provider Name:Manny gregorio, 02/05/2026 08:15:00 AM, [address] [place] [address], [phone], Provider Name:Manny gregorio, 02/12/2026 01:00:00 PM, [address], [address], [place], [place], [phone], Progress Notes * Nasir GARCIA PDOB: [birth year] (80 yo M)Acc No.[id number]:07/18/2025 Progress Note Patient: Nasir JUAREZ Provider: Farhana Zarco MD :1945 A ge:80 Y S ex:Male Date:07/18/2025 Address:[address] [place], [place] [phone] Subjective: * Chief Complaints: * 1 . Fasting lipids/ liver. * Medical History: * Medications: T aking Eliquis 5 MG [...] Tablet 1 tablet Orally Once a day Objective: * Vitals: Assessment: * Assessment: 1. P rediabetes - R73.09 (Primary) 2 . P ure hypercholesterolemia - E78.00? Plan: * Treatment: 2. P ure hypercholesterolemia L AB: Liver Panel L AB: Glucose Fasting L AB: Lipid Panel with Reflex L AB: Hemoglobin A1c (Collection Date & Time - 07/18/2025 08:00 AM) * Procedure Codes: 3 6415 VENIPUNCT, ROUTINE* * * The named appointment provid er may or may not be the originator of this progress note, and it is not deemed complete until electronically signed by the appointment provider. Sign off status: Pending * Provider: Farhana Zarco MD Date: 0 07/18/2025 Generated for Jesus Alberto alarcon/Zulma/eTkiransmitting on: 0 07/18/2025 02:20 PM EDT
--- OUTSIDE RECORDS SUMMARY | 2025-07-18 06:30 | XMS_ITS ---
Author Organization Manny Zarco MD Address [address] [place], [place] [phone] Care Team Providers Care Electromatic Typist Name Role Phone Manny Zarco Primary Care Provider [phone] Allergies No Known Allergies REASON FOR VISIT f/u ER visit for HBP, Accompanied by daughter Medications Medication SIG (Take, Route, Frequency, Duration) Notes Start Date End Date Status Atorvastatin Calcium 80 MG Take 1 tablet by mouth once daily for 90 Not-Taking Metoprolol Succinate ER 100 MG Take 1.5 tablet by mouth once daily Orally Once a day for 90 days Active Cialis 20 MG 1 tablet Orally Once a day for 90 days 03/12/2015 Not-Taking Ibuprofen 800 MG 1 tablet with food o r milk as needed Orally Three times a day for 30 days 11/26/2020 Not-Taking Levothyroxine Sodium 150 MCG take 1 tablet by mouth once daily on an empty stomach in the morning Orally Once a day Active Valsartan 160 MG 1 tablet Orally Once a day for 30 day(s) 07/18/2025 Active Aspirin 81 MG 1 tablet Orally Once a day for 30 day(s) Active Eliquis 5 MG as directed Orally twice a day Active Immunizations Vaccine Route Administration Date Status Comme nts Influenza High Dose IM Intramuscular 07/18/2025 Administer ed Vital Signs Blood pressure systolic 190 mm Hg 07/18/20 25 Blood pressure diastolic 70 mm Hg 025 Height 71 in 07/18/2025 Weight 190 lbs 07/18/2025 BMI 26.5 kg/m2 07/18/2025 Encounters Encounter Location Date Provider Diagnosis Manny Zarco MD [address] [place] [phone] 07/18/2025 Manny Zarco Encounter for administration of vaccine Z23 and Essential hypertension I10 Assessments Encounter Date Diagnosis (ICD Code) Assessment Notes Treatment Notes Treatment Clinical Notes Section Notes 07/18/2025 Encounter for administration of vaccine (ICD-10 - Z23) HD flu vaccine administered 07/18/2025 Essential hypertension (ICD-10 - I10) patient verbalized understanding of medication and directions for use Plan Of Treatment Medication Medication Name Sig Start Date Stop Date Notes Valsartan 160 MG 1 tablet Orally Once a day for 30 day(s) 07/18/2025 Treatment Notes Assessment Notes Encounter for administration of vaccine HD flu vaccine administered Essential hypertension patient verbalize d understanding of medication and directions for use Next Appt Details Follow Up: monday, Reason: Provider Name:Manny gregorio, 07/21/2025 02:15:00 PM, [address] [place] [address], [phone], Provider Name:Manny gregorio, 07/28/2025 02:00:00 PM, [address] [place] [address], [phone], Provider Name:Manny gregorio, 11/24/2025 10:00:00 AM, [address] [place] [address], [phone], Provider Name:Manny gregorio, 02/05/2026 08:15:00 AM, [address] [place] [address], [phone], Provider Name:Manny gregorio, 02/12/2026 01:00:00 PM, [address] [place] [address], [phone], Progress Notes * Nasir GARCIA PDOB: [birth year] (80 yo M)Acc No.[id number]:07/18/2025 Progress Notes Patient: Nasir JUAREZ Provider: Farhana Zarco MD :1945 A ge:80 Y S ex:Male Date:07/18/2025 [facility] Subjective: * Chief Complaints: * 1 . f/u ER visit for HBP. 2. Accompanied by daughter. * HPI: S ymptom(s): patient is a 80 yo male here for follow up recent ER visit for HBP/ went to er couple times for high bp/ bp was over 200 before the stress test. had not taken his metoprolol yet when it was high. took the metoprolol and bp came down to 150. went to er and was still high. they gave him more metoprolol. * ROS: G eneral/Constitutional: Denies C hills. D enies F atigue. D enies F ever. D enies H eadache. E NT: Denies S ore throat. R espiratory: Denies C ough. D enies S hortness of breath at rest. D enies S hortness of breath with exertion. C ardiovascular: Denies C hest pain at rest. D enies C hest pain with exertion. D enies D izziness. D enies P alpitations. D enies S hortness of breath. G astrointestinal: Denies D iarrhea. D enies [...] 1 tablet Orally Once a day , Medication List reviewed and reconciled with the patient * Allergies: N .K.D.A. Objective: * Vitals: H t: 71, Wt: 190, BMI:26.5, BP:190/70, Repeat BP:130/60, Wt-k.18. * Examination: G eneral Examination: GENERAL APPEARANCE: w ell developed, well nourished. HEAD: n ormocephalic. SKIN: g ood turgor. HEART: r egular rate and rhythm, no murmurs, rubs, gallops.? LUNGS: n o wheezes, rales, rhonchi, good air movement, clear to auscultation bilaterally. Assessment: * Assessment: 1. E ncounter for administration of vaccine - Z23 (Primary) 2 . E ssential hypertension - I10 Plan: * Treatment: 2. E ssential hypertension Start Valsartan Tablet, 160 MG, 1 tablet, Orally, Once a day, 30 day(s), 30. Notes: patient verbalized understanding of medication and directions for use * Immunizations: Influenza High Dose : 0.5 mL (Dose No:1) (Route: Intramuscular) given by Trista Triplett , Office Staff on Left Deltoid * Procedure Codes: 9 0662 FLU VACC PRSV FREE INC ANTIG, G0008 ADMN FLU VAC NO FEE SCHED SAME DAY * Follow Up: m on * * The named appointment provid er may or may not be the originator of this progress note, and it is not deemed complete until electronically signed by the appointment provider. Sign off status: Pending * Provider: Farhana Zarco MD Date: 0 07/18/2025 Generated for Jesus Alberto alarcon/Zulma/Aleitting on: 07/18/2025 02:19 PM EDT History and Physical Notes * HPI (History of Present Illness) Category Sub-Category Detail Notes Category Not es Symptom(s) patient is a 80 yo male here for follow up recent ER visit for HBP/ went to er couple times for high bp/ bp was over 200 before the stress test. had not taken his metoprolol yet when it was high. took the metoprolol and bp came down to 150. went to er and was still high. they gave him more metoprolol Examination Category Sub-Category Detail Notes Category Not es General Examination GENERAL APPEARANCE: well developed , well nourished HEAD: normocephalic HEART: regular rate and rhy thm, no murmurs, rubs, gallops LUNGS: no wheezes, rales, r honchi, good air movement, clear to auscultation bilaterally SKIN: good turgor
[2025-07-18 13:22] LABS: Hemoglobin A1C 133.9137 umol/L; Total Hemoglobin (HGBA1C) 3601.9147 umol/L
[2025-07-18 13:28] LABS: Alanine Aminotransferase 49 U/L (0-40); Albumin Level 4.5 g/dL (3.5-5.0); Alkaline Phosphatase 190 U/L (39-117); Aspartate Amino Transferase 43 U/L (5-37); Cholesterol 236 mg/dL (<200); HDL Cholesterol 47 mg/dL (>40); Total Protein 7.5 g/dL (6.5-8.0); Triglycerides 95 mg/dL (<150)
--- OUTSIDE RECORDS SUMMARY | 2025-07-18 14:20 | XMS_ITS | Clinical Summary ---
Author Organization [facility] Address [address] [place] [address] Care Team Providers Care Quality Control Inspector Name Role Phone Manny Zarco MD Primary Care Provider [phone] Allergies No known active allergies Medications Medication [...] Health Maintenance Due Date Last Done Comments COVID-19 Vaccine (#1) 1950 Pneumococcal Vaccine (1 [...] age to complete this topic Care Teams Quality Control Inspector Relationship Specialty Start Date End Date Manny Zarco MD [address] [place] [address] Drive [address] [place] [phone] PCP - General Internal Medicine 06/19/17
--- OUTSIDE RECORDS SUMMARY | 2025-07-18 14:20 | XMS_ITS | Patient Health Record ---
Author Organization [facility] Address [address] [place] [address] Care Team Providers Care Utility Bagger Name Role Phone Manny Zarco MD Primary Care Provider Chris Craft Unavailable [phone] Reason For Referral No Information Medications Medication [...] Problem Status W/U Status Risk Notes Problem [id number] Encounter for screening for malignant neoplasm of colon (Z12.11) Active confirmed Problem [id number] Preprocedural examination (Z01.818) Active confirmed Problem [id number] Long-term use of aspirin therapy (Z79.82) Active confirmed Plan Of Treatment Pending Test Test Name Order Date GI BIOPSY 10/18/2019 Future Test Test Name Order Date COLONOSCOPY 09/25/2019 Insurance Providers Payer Name Payer Address Payer Phone Subscriber Number Group Number Insured Name Patient Relationship to Insured Coverage Start Date Coverage End Date MEDICARE OF [place] [address] [place] [id number] MICAH RICKETTS Self - patient is the insured [employer] [employer] 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 Negron, Dr. Peña Neg colonoscopy in approx 2008 by his re port Hyperlipidemia Hypothyroidism Surgical History Surgery Date(Month/Year) Knee surgery 1979' Cholecystectomy 2011 Right inguinal hernia repair 2016 Left hip replacement 2003
--- OUTSIDE RECORDS SUMMARY | 2025-07-18 14:21 | XMS_ITS | Patient Health Record ---
Author Organization Manny Zarco MD Address [address] [place], [place] [id number] Care Team Providers [facility] [place] [employer] Name Role Phone Manny Zarco Primary Care Provider Allergies No Known Allergies Results Component Value Reference Range Notes Liver Panel Reviewed date:11/14/2024 12:12:08 PM Interpretation: Performing Lab:[facility], [address] [place] [phone] Notes/Report: Bilirubin Total 0.9 0.0-1.0 mg/dL Bilirubin Direct 0.4 0.0-0.5 mg/dL Aspartate Amino Transferase 53 5-37 U/L Alanine Aminotransferase 58 0-40 U/L Total Protein 7.3 6.5-8.0 g/dL Albumin Level 4.1 3.5-5.0 g/dL Alkaline Phosphatase 194 39-117 U/L TSH reflex Free T4 Reviewed date:11/21/2024 10:16:47 AM Interpretation:CBACK 11/21 TSH Performing Lab:[facility], [address] [place] [phone] Notes/Report: TSH reflex Free T4 1.32 0.32-4.0 uIU/mL Complete Blood Count Auto Di ff Reviewed date:02/04/2025 01:07:45 PM Interpretation: Performing Lab:[facility], [address] [place] [phone] Notes/Report: White Blood Count 5.5 4.8-10.8 X10*3/uL [...] NRBC Abs Auto 0.000 0.0-0.012 X10*3/uL Comprehensive Ken[place]. Panel Fa st Reviewed date:02/11/2025 01:57:19 PM Interpretation:02-11-2025 Performing Lab:[facility], [address] [place] [phone] Notes/Report: Sodium 139 135-145 mmol/L Potassium 4.5 [...] Alkaline Phosphatase 250 39-117 U/L Lipid Panel Reviewed date:02/04/2025 01:07:08 PM Interpretation: Performing Lab:[facility], [address] [place] [phone] Notes/Report: Triglycerides 69 <150 mg/dL Desirable Triglyceride: [...] in patients with liver disease. PSA,Total (Free>4and<10) Reviewed date:02/04/2025 01:06:34 PM Interpretation: Performing Lab:[facility], [address] [place] [phone] Notes/Report: PSA,Total (Free>4and<10) 1.60 0.00-4.00 ng/mL A [...] Microparticle Immunoassay (CMIA) TSH reflex Free T4 Reviewed date:02/04/2025 01:06:42 PM Interpretation: Performing Lab:[address] [phone] Notes/Report: TSH reflex Free T4 1.30 0.32-4.0 uIU/mL Microalbumin, Random Reviewed date:02/04/2025 01:06:52 PM Interpretation: Performing Lab:[facility], [address] [place] [phone] Notes/Report: Creatinine Urine 73.98 Microalbumin Urine 10.0 Microalbum/Creatinine Ratio Ur 13.5 <30 ug/mg cr Albumin/Creatinine Ratio Reference Ranges: Normal: < 30 ug/mg creatinine Microalbuminuria: 30 - 300 ug/mg creatinine Clinical Albuminuria: > 300 ug/mg creatinine Hemoglobin A1c Reviewed date:02/04/2025 01:07:00 PM Interpretation: Performing Lab:[address] [phone] Notes/Report: Hemoglobin A1c % 5.7 <6.0 % [...] average glucose, using the formula of the E1A-Saqaruv Average Glucose study (ADAG), Diabetes Care, Vol.31,#8, May. 2007 UA ClnCatch+Micro w/rflx Cul t Reviewed date:02/04/2025 01:08:27 PM Interpretation: Performing Lab:[facility], [address] [place] [phone] Notes/Report: Urine, Clean Catch Color Urine Yellow Appearance Urine Clear PH 6.0 5.0-9.0 Glucose Urine UA Negative Negative mg/dL Urine Blood Negative Negative Specific [place] - Urine 1.015 1.005-1.025 Urine Protein Negative Neg-Trace mg/dL Urine Ketones Negative Negative mg/dL Nitrite Urine Negative Negative Leukocyte Esterase Urine Negative Negative RBC Urine 0-2 0-2 /HPF WBC Urine 0-5 0-5 /HPF Squamous Epithelial Cell Urine 0-2 0-2 /HPF Bacteria Urine None Seen None Seen Hyaline Casts Urine 0-2 0-2 /LPF Liver Panel Reviewed date:03/25/2025 12:18:10 PM Interpretation: Performing Lab:[address] [phone] Notes/Report: Bilirubin Total 0.6 0.0-1.0 mg/dL Bilirubin Direct 0.2 0.0-0.5 mg/dL Aspartate Amino Transferase 56 5-37 U/L Alanine Aminotransferase 61 0-40 U/L Total Protein 6.8 6.5-8.0 g/dL Albumin Level 3.9 3.5-5.0 g/dL Alkaline Phosphatase 272 39-117 U/L Hemoglobin A1c (Not yet revi ewed by provider) Interpretation: Performing Lab:[address] [address] Notes/Report: Hemoglobin A1c % 5.6 <6.0 % [...] average glucose, using the formula of the J3F-Rgbxmqd Average Glucose study (ADAG), Diabetes Care, Vol.31,#8, 2007 Liver Panel Reviewed date:08/12/2024 04:45:32 PM Interpretation: Performing Lab:[address] [phone] Notes/Report: Bilirubin Total 0.7 0.0-1.0 mg/dL Bilirubin Direct 0.2 0.0-0.5 mg/dL Slight Hem olysis Aspartate Amino Transferase 47 5-37 U/L Slight Hemolysis Alanine Aminotransferase 48 0-40 U/L Total Protein 7.0 6.5-8.0 g/dL Albumin Level 4.1 3.5-5.0 g/dL Alkaline Phosphatase 190 39-117 U/L Glucose Fasting Reviewed date:08/12/2024 01:59:06 PM Interpretation: Performing Lab:[facility], [address] [place] [phone] Notes/Report: Glucose Fasting 103 60-99 mg/dL A fasting glucose from 100-125 mg/dl is considered impaired (pre-diabetes). Lipid Panel with Reflex Reviewed date:08/12/2024 04:43:57 PM Interpretation: Performing Lab:[address] [phone] Notes/Report: Triglycerides 67 <150 mg/dL Desirable Triglyceride: [...] T4 Reviewed date:08/12/2024 01:59:21 PM Interpretation: Performing Lab:[facility], [address] [place] [phone] Notes/Report: TSH reflex Free T4 5.75 0.32-4.0 uIU/mL Hemoglobin A1c Reviewed date:08/12/2024 01:00:30 PM Interpretation: Performing Lab:[facility], [address] [place] [phone] Notes/Report: Hemoglobin A1c % 5.7 <6.0 % [...] average glucose, using the formula of the F2W-Ahkhmxm Average Glucose study (ADAG), Diabetes Care, Vol.31,#8, 2007 Occult Blood, Stool, Guaiac Reviewed date:02/11/2025 01:33:16 PM Interpretation:Negative Performing Lab: Notes/Report: Negative Occult Blood, Stool, Guaiac Neg Glucose, finger stick (Not y et reviewed by provider) Interpretation: Performing Lab: Notes/Report: Value 106 Complete Blood Count Auto Di ff Reviewed date:05/06/2025 05:20:24 PM Interpretation: Performing Lab:[facility], [address] [place] [phone] Notes/Report: White Blood Count 6.5 4.8-10.8 X10*3/uL Red Blood Count 4.03 4.60-5.80 X10*6/uL Hemoglobin 11.9 14.0-18.0 g/dl Hematocrit 37.7 42.0-52.0 % Mean Corpuscular Volume 93.5 80.0-98.0 fL Mean Corpuscular Hemoglobin 29.5 27.0-33.0 pg Mean Corpuscular HGB Conc 31.6 31.0-36.0 g/dl Red Cell Distribution Width 14.3 11.0-16.0 % Platelet Count 441 160-400 X10*3/uL Mean Platelet Volume 10.3 9.4-12.4 fL Neutrophils Percent Auto 63.2 45-73 % Imm Gran Pct Auto 0.3 0.0-0.4 % Lymphocytes Percent Auto 22.2 20-40 % Monocytes Percent Auto 9.4 2-11 % Eosinophils Percent Auto 2.6 0-4 % Basophils Percent Auto 2.3 0-2 % NRBC Pct Auto 0.0 0.0-0.2 /100WBC Neutrophils Absolute Auto 4.1 2.0-8.3 x10*3/uL Imm Gran Abs Auto 0.02 0.00-0.03 X10*3/uL Lymphocytes Absolute Auto 1.4 1.2-4.9 X10*3/uL Monocytes Absolute Auto 0.6 0.1-1.2 X10*3/uL Eosinophils Absolute Auto 0.2 0.0-0.4 X10*3/uL Basophils Absolute Auto 0.2 0.0-0.2 X10*3/uL NRBC Abs Auto 0.000 0.0-0.012 X10*3/uL Osmolality, Serum Reviewed date:05/06/2025 12:28:00 PM Interpretation: Performing Lab:[facility], [address] [place] [phone] Notes/Report: Osmolality, Serum 291 281-305 mosm/kg Free T4 (Free Thyroxine) Reviewed date:08/12/2024 04:45:50 PM Interpretation: Performing Lab:[facility], [address] [place] [phone] Notes/Report: Free T4 (Free Thyroxine) 1.13 0.71-1.85 ng/dL Murtaza Walter Reviewed date:08/12/2024 12:56:56 PM Interpretation: Performing Lab:[facility], [address] [place] [phone] Notes/Report: Murtaza Walter See Note Specimen held untested for 24 hours; Call to request Chemistry testing. Murtaza Walter Reviewed date:11/14/2024 12:27:37 PM Interpretation: Performing Lab:[facility], [address] [place] [phone] Notes/Report: Murtaza Walter See Note Specimen held untested for 24 hours; Call to request Chemistry testing. US abdomen complete Reviewed date:11/29/2024 12:37:43 PM Interpretation: Performing Lab: Notes/Report: [address] [address] Ultrasound Report Signed Patient: Nasir Garcia MR#: [id number] [birth year] : 1945 Acct:[id number] Age/Sex: 79 / M ADM Date: 11/22/24 Loc: HO.US Attending Dr: Manny Zarco MD Ordering Physician: Manny Zarco MD Date of Service: 11/22/24 Procedure(s): US abdomen complete Accession Number(s): [id number] cc: Manny Zarco MD CLINICAL HISTORY: elevated [...] OV> 11/29/24 0739 DD/ 7 TD/TT: 11/29/24737 Financial Compliance Manager: [place] [address] Ultrasound Report Signed Patient: Harry Garcia tristin MR#: [id number] : 1945 Acct:[id number] Age/Sex: 79 / M ADM Date: 11/22/24 Loc: HO.US Attending Dr: Manny Zarco MD Ordering Physician: Manny Zarco MD Date of Service: 11/22/24 Procedure(s): US abdomen complete Accession Number(s): [id number] cc: Manny Zarco MD CLINICAL HISTORY: elevated [...] signed by Salbador Romero MD in OV> 11/29/24738 DD/ 7 TD/TT: 11/29/24737 Financial Compliance Manager: XR ribs LT min 3V w CXR1V Reviewed date:01/16/2025 11:29:52 AM Interpretation: Performing Lab: Notes/Report: [place] [address] XRay Report Signed Patient: Nasir Garcia MR#: [id number] [birth year] : 1945 Acct:[id number] Age/Sex: 79 / M ADM Date: 01/13/25 Loc: HO.SHARAN Attending Dr: Manny Zarco MD Ordering Physician: Manny Zarco MD Date of Service: 01/13/25 Procedure(s): XR ribs LT min 3V w CXR1V Accession Number(s): [id number] cc: Manny Zarco MD CLINICAL HISTORY: RIB [...] in OV> 01/14/251514 DD/ 12 TD/TT: 01/14/251512 Financial Compliance Manager: [address] [address] XRay Report Signed Patient: Harry Garcia MR#: [id number] [birth year] : 1945 Acct:[id number] Age/Sex: 79 / M ADM Date: 01/13/25 Loc: HO.XRAY Attending Dr: Manny Zarco MD Ordering Physician: Manny Zarco MD Date of Service: 01/13/25 Procedure(s): XR rib s LT min 3V w CXR1V Accession Number(s): [id number] cc: Manny Zarco MD CLINICAL HISTORY: RI [...] in OV> 01/14/251514 DD/ 12 TD/TT: 01/14/251512 Financial Compliance Manager: US carotid duplex BI Reviewed date:03/20/2025 04:15:36 PM Interpretation: Performing Lab: Notes/Report: [address] [address] Ultrasound Report Signed Patient: Nasir Garcia MR#: [id number] [birth year] : 1945 Acct:[id number] Age/Sex: 79 / M ADM Date: 03/20/25 Loc: HO.US Attending Dr: Manny Zarco MD Ordering Physician: Manny Zarco MD Date of Service: 03/20/25 Procedure(s): US carotid duplex BI Accession Number(s): [id number] cc: Manny Zarco MD EXAMINATION: US EXTRACRANIAL CAROTID DUPLEX, BILATERAL CLINICAL INFORMATION: Bruit COMPARISON: None available. TECHNIQUE: Real-time ultrasound and Doppler techniques (integrating B-mode 2-D vascular images, Doppler spectral analysis and color-flow Doppler imaging) were utilized to interrogate the extracranial carotid arteries, the vertebral arteries and proximal subclavian arteries bilaterally. The degree of stenosis is determined by criteria similar to NASCET. FINDINGS: Right Side: 1. There is irregular calcified atherosclerotic plaque seen in the bifurcation/proximal ICA region. 2. The common carotid artery PSV proximally is 91 cm/s and distally 71 cm/s. 3. The proximal internal carotid artery velocities are 77 cm/s systolic and 16 cm/s diastolic. 4. The proximal external carotid artery PSV is 126 cm/s. 5. The vertebral artery shows antegrade flow. 6. The subclavian artery waveforms are triphasic. Left Side: 1. There is calcified atherosclerotic plaque seen in the bifurcation/proximal ICA region. 2. The common carotid artery PSV proximally is 90 cm/s and distally 69 cm/s. 3. The proximal internal carotid artery velocities are 64 cm/s systolic and 16 cm/s diastolic. 4. The proximal external carotid artery PSV is 118 cm/s. 5. The vertebral artery shows antegrade flow. 6. The subclavian artery waveforms are triphasic. US/US carotid duplex BI IMPRESSION: 1. RIGHT: Calcified plaques representing 0-49% stenosis by ultrasound criteria, right ICA. 2. LEFT: Calcified plaques representing 0-49% stenosis by ultrasound criteria, left ICA Electronically signed by: Dre Rodriguez MD 03/20/2025 02:23 PM EDT RP Dictated By: Dre Mullen MD Signed By: <Electronically signed by Dre Howell MD in OV> 03/20/25 1423 DD/ 1359 TD/TT: 03/20/25 1411 Financial Compliance Manager: [address] [address] Ultrasound Report Signed Patient: Harry Garcia [facility] MR#: [id number] 23 : 1945 Acct:[id number] Age/Sex: 79 / M ADM Date: 03/20/25 Loc: .US Attending Dr: Manny Zarco MD Ordering Physician: Manny Zarco MD Date of Service: 03/20/25 Procedure(s): US carotid duplex BI Accession Number(s): [id number] cc: Manny Zarco MD EXAMINATION: US EXTRACRANIAL MUNOZ TID DUPLEX, BILATERAL CLINICAL INFORMATION: Bruit COMPARISON: None available. TECHNIQUE: Real-time ultrasound and Doppler techniques (integrating B-mode 2-D vascular images, Doppler spectral analysis and color-flow Doppler imaging) were utilized to interrog ate the extracranial carotid arteries, the vertebral arteries a nd proximal subclavian arteries bilaterally. The degree of stenosis i s determined by criteria similar to NASCET. FINDINGS: Right Side: 1. There is irregula r calcified atherosclerotic plaque seen in the bifurcation/proximal ICA region. 2. The common caroti d artery PSV proximally is 91 cm/s and distally 71 cm/s. 3. The proximal internal carotid artery velocities are 77 cm/s systolic and 16 cm/s diastolic. 4. The proximal external carotid artery PSV is 126 cm/s. 5. The vertebral art carmelita shows antegrade flow. 6. The subclavian artery waveforms are triphasic. Left Side: 1. There is calcifie d atherosclerotic plaque seen in the bifurcation/proximal ICA region. 2. The common caroti d artery PSV proximally is 90 cm/s and distally 69 cm/s. 3. The proximal internal carotid artery velocities are 64 cm/s systolic and 16 cm/s diastolic. 4. The proximal external carotid artery PSV is 118 cm/s. 5. The vertebral art carmelita shows antegrade flow. 6. The subclavian artery waveforms are triphasic. US/US carotid duplex BI IMPRESSION: 1. RIGHT: Calcified plaques representing 0-49% stenosis by ultrasound criteria, right ICA. 2. LEFT: Calcified plaques representing 0-49% stenosis by ultrasound criteria, left ICA Electronically nayan d by: Dre Rodriguez MD 03/20/2025 02:23 PM EDT RP Dictated By: Dre Jarrell MD Signed By: <Electronically signed by Dre Howell MD in OV> 03/20/25 1423 DD/ 1359 TD/TT: 03/20/25 1411 Financial Compliance Manager: Urinalysis Reviewed date:05/06/2025 12:28:27 PM Interpretation: Performing Lab:[facility], [address] [place] [phone] Notes/Report: Color Urine Yellow Appearance Urine Clear PH 6.5 5.0-9.0 Glucose Urine UA Negative Negative mg/dL Urine Blood Negative Negative Specific [place] - Urine 1.015 1.005-1.025 Urine Protein Negative Neg-Trace mg/dL Urine Ketones Negative Negative mg/dL Nitrite Urine Negative Negative Leukocyte Esterase Urine Negative Negative Comprehensive Met. Panel Reviewed date:05/06/2025 05:18:53 PM Interpretation: Performing Lab:[facility], [address] [place] [phone] Notes/Report: Sodium 139 135-145 mmol/L Potassium 4.5 3.3-5.1 mmol/L Chloride 106 96-108 mmol/L Carbon Dioxide 25 22-29 mmol/L Anion Gap 13 12-20 Blood Urea Nitrogen 17 9-16 mg/dL Creatinine 1.31 0.5-1.4 mg/dL Estimated Glomerular Filt Rate 53 Chronic Kidney Disease: Estimated GFR < 60 mL/min/1.73m2 Severe Kidney Disease: Estimated GFR < 15 mL/min/1.73m2 Glucose Random 95 60-115 mg/dL Calcium 9.8 8.4-10.2 mg/dL Bilirubin Total 0.3 0.0-1.0 mg/dL Aspartate Amino Transferase 41 5-37 U/L Alanine Aminotransferase 42 0-40 U/L Total Protein 7.4 6.5-8.0 g/dL Albumin Level 4.1 3.5-5.0 g/dL Alkaline Phosphatase 323 39-117 U/L Hold Gold (Not yet reviewed by provider) Interpretation: Performing Lab:[facility], [address] [place] [phone] Notes/Report: Hold Gold See Note Specimen held untested for 24 hours; Call to request Chemistry testing. Reason For Referral No Information Medications Medication SIG (Take, Route, Frequency, Duration) Notes Start Date End Date Status Atorvastatin Calcium 80 MG Take 1 tablet by mouth once daily for 90 Not-Taking Metoprolol Succinate ER 100 MG Take 1.5 tablet by mouth once daily Orally Once a day for 90 days Active Valsartan 160 MG 1 tablet Orally Once a day for 30 day(s) 07/18/2025 Active Cialis 20 MG 1 tablet Orally Once a day for 90 days 03/12/2015 Not-Taking Ibuprofen 800 MG 1 tablet with food o r milk as needed Orally Three times a day for 30 days 11/26/2020 Not-Taking Aspirin 81 MG 1 tablet Orally Once a day for 30 day(s) Active Eliquis 5 MG as directed Orally twice a day Active Levothyroxine Sodium 150 MCG take 1 tablet by mouth once daily on an empty stomach in the morning Orally Once a day Active Immunizations Vaccine Route Administration [...] High Dose IM Intramuscular 08/12/2024 Administer ed Influenza High Dose IM Intramuscular 07/18/2025 Administer ed Social History Tobacco Use: Social [...] Status Risk Notes Problem Coronary artery disease (56078717) CAD (414.00) Active confirmed Problem Atrial fibrillation (35044164) Atrial fibrillation (I48.91) Active confirmed Problem 527156828 Reflux esophagit is (K21.00) Active confirmed Problem Carotid artery disease (748638480) Carotid artery disease (I77.9) Active confirmed Problem 63353371 Essential hypert ension (I10) Active confirmed Problem 174351866 Acquired hypothyroidism (E03.9) Active confirmed Problem 0471398 Prediabetes (R73.09) Active confirmed Problem 804979593 Low HDL (under 4 0) (E78.6) Active confirmed Problem 516291851 History of coron jyothi artery stent placement (Z95.5) Active confirmed Problem 89790421 Sciatica of left side (M54.32) Active confirmed Problem 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) Dilated bile duct (K83.8) Active confirmed Problem 557782589 H/O bee sting al lergy (Z91.030) Active confirmed Problem Gallstones (675685750) Gallstones (K80.20) Active confirmed Problem Chronic sinusitis (85064094) Recurrent sinus infections (J32.9) Active confirmed Problem 259796344 Pure hypercholesterolemia (E78.00) Active confirmed Problem 126392155 History of tongu e cancer (Z85.810) Active confirmed Problem 614307846 Arthritis of kne e (M17.10) Active confirmed Problem 302263094 Hx of thyroid irradiation (Z92.3) Active confirmed Problem 127289963 Unilat ing herni a (K40.90) Active confirmed Problem 914749880 Age-related inci pient cataract, unspecified laterality (H25.099) Active confirmed Vital Signs Blood pressure diastolic 70 mm Hg 07/18/2025 Height 71 in 07/18/2025 Blood pressure systolic 190 mm Hg 07/18/2025 Weight 190 lbs 07/18/2025 BMI 26.5 kg/m2 07/18/2025 Encounters Encounter Location Date Provider Diagnosis Manny Zarco MD [address] [place] [id number] 11/14/2024 Manny Zarco Prediabetes R73.09 Manny Zarco MD [address] [place] [id number] 02/04/2025 Manny Zarco Essential hypertensi on I10 ; Prediabetes R73.09 ; Pure hypercholesterolemia E78.00 and Acquired hypothyroidism E03.9 Manny Zarco MD [address] [place] [id number] 03/25/2025 Manny Zarco Elevated liver enzym es R74.8 Manny Zarco MD [address] [place] [address] [id number] 06/16/2025 Manny Zarco Gallstones K80.20 ; Atrial fibrillation I48.91 and History of coronary artery stent placement Z95.5 Manny Zarco MD [address] [place] [address] [id number] 07/18/2025 Manny Zarco Prediabetes R73.09 a nd Pure hypercholesterolemia E78.00 Manny Zarco MD [address] [place] [address] [id number] 07/18/2025 Manny Zarco Encounter for administration of vaccine Z23 and Essential hypertension I10 Manny Zarco MD [address] [place] [id number] 08/12/2024 Manny Zarco Prediabetes R73.09 ; Pure hypercholesterolemia E78.00 ; Acquired hypothyroidism E03.9 and Encounter for immunization Z23 Manny Zarco MD [address] [place] [id number] 08/16/2024 Manny Zarco Prediabetes R73.09 ; Pure hypercholesterolemia E78.00 ; Acquired hypothyroidism E03.9 and Essential hypertension I10 Manny Zarco MD [address] [place] [address] [id number] 11/21/2024 Manny Zarco Encounter for Medica re annual wellness exam V70.0 ; Liver enzyme elevation R74.8 and Acquired hypothyroidism E03.9 Manny Zarco MD [address] [place] [address] [id number] 01/13/2025 Manny Zarco Rib pain on left geronimo e R07.81 Manny Zarco MD [address] [place] [address] [id number] 02/11/2025 Manny Zarco Elevated liver enzym es R74.8 ; Prediabetes R73.09 ; Essential hypertension I10 ; History of coronary artery stent placement Z95.5 ; Carotid artery bruit R09.89 ; Pure hypercholesterolemia E78.00 ; Acquired hypothyroidism E03.9 ; Colon cancer screening Z12.11 and Depression screening Z13.31 Manny Zarco MD [address] [place] [id number] 04/07/2025 Manny Zarco Pure hypercholestero lemia E78.00 ; Elevated LFTs R79.89 ; Carotid artery disease I77.9 and Dilated bile duct K83.8 Manny Zarco MD [address] [place] [address] [id number] 05/05/2025 Manny Zarco Sepsis due to Escher ichia coli A41.51 ; Gallstones K80.20 ; Abnormal CT of the abdomen R93.5 ; Polyuria R35.89 and Prediabetes R73.09 Manny Zarco MD [address] [place] [address] [id number] 05/09/2025 Manny Zarco Thrush B37.0 ; Pure hypercholesterolemia E78.00 ; Sepsis due to Escherichia coli A41.51 ; Abnormal CT of the abdomen R93.5 and Polyuria R35.89 Manny Zarco MD [address] [place] [address] [id number] 01/16/2025 Manny Zarco Rib pain R07.81 Manny Zarco MD [address] [place] [address] [id number] 04/21/2025 Manny Zarco MD [address] [place] [address] [id number] 05/29/2025 Manny Zarco Essential hypertensi on I10 Manny Zarco MD [address] [place] [id number] 07/17/2025 Manny Zarco Assessments Encounter Date Diagnosis (ICD Code) Assessment Notes Treatment Notes Treatment Clinical Notes Section Notes 11/14/2024 Prediabetes (ICD-10 - R73.09) 02/04/2025 Essential hypertensi on (ICD-10 - I10) 03/25/2025 Elevated liver enzym es (ICD-10 - R74.8) 06/16/2025 Gallstones (ICD-10 - K80.20) had stent removed last week 06/16/2025 Atrial fibrillation (ICD-10 - I48.91) on eliquis 07/18/2025 Prediabetes (ICD-10 - R73.09) 07/18/2025 Encounter for administration of vaccine (ICD-10 - Z23) HD flu vaccine administered 08/12/2024 Prediabetes (ICD-10 - R73.09) 08/12/2024 Pure hypercholesterolemia (ICD-10 - E78.00) 08/16/2024 Prediabetes (ICD-10 - R73.09) good a1c, no need for medication at ths time 08/16/2024 Pure hypercholesterolemia (ICD-10 - E78.00) lft little high from the statin, will continue current regiment and will continue to monitor 11/21/2024 Encounter for Medica re annual wellness exam (ICD9-CM - V70.0) order faxed to [facility] dept 11/21/2024 Liver enzyme elevati on (ICD-10 - R74.8) 01/13/2025 Rib pain on left geronimo e (ICD-10 - R07.81) if the xray doesn't show anything will get a bone scan. XRAY PRINTED AND GIVEN TO PATIENT 02/11/2025 Elevated liver enzym es (ICD-10 - R74.8) had liver us that showed slight dilated bile ducts consistant with post gallbladder removal, will continue to monitor, labs pending 02/11/2025 Prediabetes (ICD-10 - R73.09) stable, no need for medication at this time 04/07/2025 Pure hypercholesterolemia (ICD-10 - E78.00) needs the statins since he had stents 15 years ago 04/07/2025 Elevated LFTs (ICD-1 0 - R79.89) is probably from the statins. but not high enough to stop the statins. will follow. had an us of liver which was good 05/05/2025 Sepsis due to Escherichia coli (ICD-10 - A41.51) 05/05/2025 Gallstones (ICD-10 - K80.20) need discharge summary from [facility] HOSPITAL/REQUEST FAXED TO [facility] RECORDS AT [facility] 05/09/2025 Thrush (ICD-10 - B37.0) raymon ent verbalized understanding of medication and directions for use 01/16/2025 Rib pain (ICD-10 - R07.81) Order made and will fax to [facility] 05/29/2025 Essential hypertensi on (ICD-10 - I10) 02/04/2025 Prediabetes (ICD-10 - R73.09) 06/16/2025 History of coronary artery stent placement (ICD-10 - Z95.5) if liver is normal will restart atorvastatin 07/18/2025 Pure hypercholesterolemia (ICD-10 - E78.00) 07/18/2025 Essential hypertensi on (ICD-10 - I10) patient verbalized understanding of medication and directions for use 08/12/2024 Acquired hypothyroid ism (ICD-10 - E03.9) 08/16/2024 Acquired hypothyroid ism (ICD-10 - E03.9) tsh too high. increase the levothy to 150 11/21/2024 Acquired hypothyroid ism (ICD-10 - E03.9) 02/11/2025 Essential hypertensi on (ICD-10 - I10) 04/07/2025 Carotid artery disea se (ICD-10 - I77.9) 05/05/[address] of the abdomen (ICD-10 - R93.5) 05/09/2025 Pure hypercholesterolemia (ICD-10 - E78.00) will hold off on meds 02/04/2025 Pure hypercholesterolemia (ICD-10 - E78.00) 08/12/2024 Encounter for immunization (ICD-10 - Z23) 08/16/2024 Essential hypertensi on (ICD-10 - I10) well controlled, will continue current regiment 02/11/2025 History of coronary artery stent placement (ICD-10 - Z95.5) 04/07/2025 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 US order faxed to [facility] CS dept 05/05/2025 Prediabetes (ICD-10 - R73.09) 05/09/[address] of the abdomen (ICD-10 - R93.5) will await gi evaluation 02/11/2025 Pure hypercholesterolemia (ICD-10 - E78.00) stable, will continue current regiment 05/09/2025 Polyuria (ICD-10 - R35.89) has resolved 02/11/2025 Acquired hypothyroid ism (ICD-10 - E03.9) stable, will contonue current regiment 02/11/2025 Colon cancer screeni ng (ICD-10 - Z12.11) guaiac negative 02/11/2025 Depression screening (ICD-10 - Z13.31) negative screen Plan Of Treatment Pending Test Test Name Order Date Electrocardiogram (EKG) 03/11/2016 Glucose, finger stick 05/05/2025 XR RIBS LT + PA CHEST 01/13/2025 US ABD 06/18/2021 US ABD 11/21/2024 US CAROTID BILATERAL DOPPLER 02/11/2025 Urinalysis and Microscopic 05/05/2025 Comprehensive Kenvir. Panel Fast Liver Panel 07/18/2025 Glucose Fasting 07/18/2025 Lipid Panel with Reflex 07/18/2025 Hold Gold 07/18/[address] fusion whole body 01/16/2025 Hemoglobin A1c 07/18/2025 Next Appt Details Provider Name:Manny gregorio, 07/21/2025 02:15:00 PM, [address] [place] [address], [address], [place], [place], [phone], Provider Name:Manny gregorio, 07/28/2025 02:00:00 PM, [address], [address], [place], [phone], Provider Name:Manny Dow ier, 11/24/2025 10:00:00 AM, [address], [address], [place], [id number], Provider Name:Manny Dow ier, 02/05/2026 08:15:00 AM, [address], [address], [place], [id number], Provider Name:Manny Dow ier, 02/12/2026 01:00:00 PM, [address], [address], [place], [phone], Insurance Providers Payer Name Payer Address Payer Phone Subscriber Number Group Number Insured Name Patient Relationship to Insured Coverage Start Date Coverage End Date [employer] [address] [place] [address] [id number] Nasir Garcia Self - patient is the insured [employer] [facility] [place] [employer] [address] [place] [address] [id number] Nasir Garcia Self - patient is the insured Medical (General) History Medical History History ICD Code stent 2008 colonoscopy 2008 due 2019; c olonoscopy done 10/18/[address] Ward - no further testing HX of stool positive guaiac Surgical History Surgery Date(Month/Year) Rt Inguinal Hernia Repair w/mesh by Dr. Forrest 10/2016
[2025-07-18 14:48] LABS: Reflex LDLD? No
== END 2025-07-18 12:57 | disposition home or self-care (01) ==
LOC: HO.LNP 12:56
PROVIDERS: Visit Provider Internal Medicine
DX: R73.09 Other abnormal glucose (principal); E78.00 Pure hypercholesterolemia, unspecified
CPT/HCPCS: 80061; 80076; 82947; 83036

== ENCOUNTER 2025-09-01 10:49 | Outpatient (REF) | payer MEDICARE, OTHER, SELFPAY ==
[2025-09-01 11:49] LABS: Alanine Aminotransferase 82 U/L (0-40); Albumin Level 4.2 g/dL (3.5-5.0); Alkaline Phosphatase 215 U/L (39-117); Aspartate Amino Transferase 57 U/L (5-37); Total Protein 6.8 g/dL (6.5-8.0)
--- OUTSIDE RECORDS SUMMARY | 2025-09-01 12:56 | XMS_ITS | Clinical Summary ---
Author Organization [facility] Address [address] [place] [address] Care Team Providers Care Research Agricultural Engineer Name Role Phone Manny Zarco MD Primary Care Provider [phone] Allergies No known active allergies Medications Medication [...] age to complete this topic Care Teams Research Agricultural Engineer Relationship Specialty Start Date End Date Manny Zarco MD [address] [place] [address] [address] [place] [phone] PCP - General Internal Medicine 06/19/17
== END 2025-09-01 10:50 | disposition home or self-care (01) ==
LOC: HO.LNP 10:49
PROVIDERS: Visit Provider Internal Medicine
DX: R79.89 Other specified abnormal findings of blood chemistry (principal)
CPT/HCPCS: 80076